=== PATIENT | female | born 1955 | race Caucasian/White ===

== ENCOUNTER 2016-08-18 11:36 | Day surgery (SDC) | payer BC ==
[2016-08-18] MEDS ORDERED: Morphine INJ* 4 MG/ML 1 ML SYRINGE ONE (12:27)
[2016-08-18] MEDS ORDERED: Ondansetron INJ* 2 MG/ML VIAL ONE (12:27)
[2016-08-18] MEDS ORDERED: Ondansetron INJ* 2 MG/ML VIAL IV ONE (13:00)
[2016-08-18] MEDS ORDERED: Morphine INJ* 4 MG/ML 1 ML SYRINGE IV ONE ×2 (13:00→13:06)
[2016-08-18] MEDS: NS 0.9% 1000 ML* 1,000 ML IV ONE ×2 (13:16→15:56)
--- NOTE | 2016-08-18 13:20 | RAD ---
CLINICAL HISTORY: Severe right lower quadrant and left lower quadrant pain COMPARISON: None relevant TECHNIQUE: Multiple contiguous axial CT scans were obtained of the abdomen and pelvis, without intravenous contrast enhancement. Coronal and sagittal multiplanar reformations are submitted for review. Oral contrast was not administered. FINDINGS: The study is limited by the lack of intravenous contrast. This limits evaluation of the solid organs and vasculature. LUNG BASES: The lung bases are clear. LIVER: The liver is diffusely low in attenuation compared to the spleen. There are no focal hepatic parenchymal masses. The liver measures up to 20 cm in long axis. BILE DUCTS: There is no intrahepatic or extrahepatic biliary dilatation. GALLBLADDER: The gallbladder is normal, without pericholecystic inflammatory change. PANCREAS: The pancreas is normal, without mass or ductal dilatation. SPLEEN: Normal in size and appearance. UPPER GI TRACT: Evaluation of the gastrointestinal tract is limited by incomplete gastric distention. The upper GI tract is unremarkable. SMALL BOWEL AND MESENTERY: The small bowel is normal in contour, course, and caliber. There is no obstruction or dilatation. COLON: There are multiple diverticula of the sigmoid colon and ascending colon. There is no pericolonic inflammatory change. ADRENALS: Normal bilaterally. KIDNEYS: There is a punctate left renal calyceal stones. There is a 0.8 x 0.3 cm calculus of the left UVJ. There is moderate left-sided hydronephrosis. BLADDER: As noted above, there is a left UVJ calculus. PELVIC ORGANS: The uterus is fibroid. AORTA: The aorta is normal. IVC: Unremarkable LYMPH NODES: There is no lymphadenopathy by size criteria. ABDOMINAL WALL: There is a small fat-containing umbilical hernia. BONES AND SOFT TISSUES: There are mild diffuse degenerative changes. OTHER: None IMPRESSION: 1. LEFT UVJ CALCULUS WITH MODERATE LEFT-SIDED HYDRONEPHROSIS. 2. DIVERTICULOSIS OF THE SIGMOID AND ASCENDING COLON. 3. HEPATOMEGALY WITH FATTY INFILTRATION OF THE LIVER
[2016-08-18 13:27] LABS: Hematocrit 41 % (35-47); Hemoglobin 13.2 g/dl (12.0-16.0); Mean Corpuscular HGB Conc 33 g/dl (31-36); Mean Corpuscular Hemoglobin 31 pg (27-31); Mean Corpuscular Volume 95 fL (80-97); Mean Platelet Volume 9 um3 (7.4-10.4); Red Blood Count 4.31 10^6/ul (4.0-5.4); Red Cell Distribution Width 15 % (10.5-15); White Blood Count 7.1 10^3/ul (3.5-10.8)
[2016-08-18 13:33] LABS: Urine Bacteria Absent (Absent); Urine Bilirubin Negative (Negative); Urine Glucose Negative (Negative); Urine Nitrite Negative (Negative)
[2016-08-18 13:42] LABS: Albumin 4.2 g/dL (3.2-5.2); BUN/Creatinine Ratio 11.5 (8-20); C Reactive Protein 4.22 mg/L (< 5.00); Calcium 10.3 mg/dL (8.6-10.3); EGFR African American 153.2 (>60); EGFR Non-African American 119.1 (>60); Globulin 3.6 g/dL (2-4); Potassium 3.6 mmol/L (3.5-5.0); Total Bilirubin 0.7 mg/dL (0.2-1.0); Total Protein 7.8 g/dL (6.4-8.9)
[2016-08-18] MEDS ORDERED: Ketorolac INJ* 30 MG/ML 1 ML VIAL IV ONE (14:30)
--- NOTE | 2016-08-18 15:31 | ED ---
Abdominal Pain/Female - HPI Summary HPI Summary: Patient presents with acute onset of abdominal pain this morning without known cause. She was getting dressed for work when she was suddenly doubled over in pain. She denies recent illness, fevers, diarrhea, constipation, urinary symptoms or LLAMAS. She has bilateral back pain and suprapubic pain and nausea. She has never had pain like this in the past and was well yesterday. She denies blood in her stool, no vaginal discharge and she is menopausal. - History of Current Complaint Chief Complaint: EDAbdPain Stated Complaint: ABD PAIN,CANT URINATE,VOMITING Time Seen by Provider: 08/18/16 12:05 Hx Obtained From: Patient, Family/Accounts Receivable Analyst ?: No Onset/Duration: Sudden Onset Timing: Constant Severity Initially: Severe Severity Currently: Severe Pain Intensity: 8 Location: Suprapubic, Flank Radiates: No Character: Sharp Aggravating Factor(s): Nothing Alleviating Factor(s): Nothing Associated Signs and Symptoms: Positive: Nausea, Vomiting. Negative: Chest Pain , Constipation, Blood in Stool, Urinary Symptoms, Decreased Appetite, Vaginal Bleeding Allergies/Adverse Reactions: Allergies Allergy/AdvReac Type Severity Reaction Status Date / Time No Known Allergies Allergy Verified 08/18/16 12:40 Home Medications: Home Medications ALPRAZolam TAB* [Xanax TAB*] 0.25 mg PO Q14D PRN 08/18/16 [History Confirmed 11/26] Ibandronate TAB(NF) [Boniva(NF)] 150 mg PO MONTHLY 08/18/16 [History Confirmed 08/18/16] Multiple Minerals W/ Vitamins [Bone Density Builder] 1 tab PO DAILY 08/18/16 [ History Confirmed 08/18/16] [place]-3 Fatty Acids (Nf) [Fish Oil (NF)] 1,000 mg PO DAILY 08/18/16 [History Confirmed 08/18/16] PMH/Surg Hx/FS Hx/Imm Hx Previously Healthy: Yes Endocrine/Hematology History: Reports: Hx Blood Disorders - hemachromatosis - Cancer History Cancer Type, Location and Year: breast CA - Surgical History Surgery Procedure, Year, and Place: rt lumpectomy. myomectomy Infectious Disease History: No Infectious Disease History: Denies: Traveled Outside the [place] in Last 30 Days - Family History Known Family History: Positive: None - Social History Occupation: Employed Full-time Lives: With Family Alcohol Use: Daily Substance Use Type: Reports: None Smoking Status (MU): Never Smoked Tobacco Review of Systems Negative: Fever, Chills Positive: Abdominal Pain, Vomiting, Nausea. Negative: Diarrhea Positive: flank pain All Other Systems Reviewed And Are Negative: Yes Physical Exam Triage Information Reviewed: Yes Vital Signs On Initial Exam: Initial Vitals Temp Pulse Resp BP Pulse Ox 97.1 F 64 20 146/60 100 08/18/16 11:50 08/18/16 11:50 08/18/16 11:50 08/18/16 11:50 08/18/16 11:50 Vital Signs Reviewed: Yes Appearance: Positive: Well-Appearing, Pain Distress, Thin Skin: Positive: Warm, Skin Color Reflects Adequate Perfusion, Dry, Soft Head/Face: Positive: Normal Head/Face Inspection Eyes: Positive: EOMI, MILE, Conjunctiva Clear ENT: Positive: Hearing grossly normal Respiratory/Lung Sounds: Positive: Clear to Auscultation, Breath Sounds Present Cardiovascular: Positive: RRR Abdomen Description: Positive: Soft, CVA Tenderness (R), CVA Tenderness (L), Guarding. Negative: Nontender - suprapubic pain, Distended Bowel Sounds: Positive: Present Musculoskeletal: Negative: Edema Left, Edema Right Neurological: Positive: Sensory/Motor Intact, Alert, Oriented to Person Place, Time, NV Bundle Intact Distally, Normal Gait Psychiatric: Positive: Affect/Mood Appropriate AVPU Assessment: Alert - Spring Coma Scale Coma Scale Total: 15 Diagnostics - Vital Signs Vital Signs Temp Pulse Resp BP Pulse Ox 08/18/16 15:00 83 125/53 100 08/18/16 14:30 88 137/72 99 08/18/16 14:03 95 138/97 89 08/18/16 14:00 96 99 08/18/16 13:30 90 141/72 97 08/18/16 13:24 91 85 08/18/16 13:22 139/54 08/18/16 13:16 20 08/18/16 12:25 20 08/18/16 12:01 98.1 F 70 20 137/64 100 08/18/16 11:53 98.9 F 65 20 146/60 97 08/18/16 11:50 97.1 F 64 20 146/60 100 - Laboratory Lab Results: Lab Results 08/18/16 08/18/16 08/18/16 Range/Units 12:15 13:15 13:15 WBC 7.1 (3.5-10.8) 10^3/ul RBC 4.31 (4.0-5.4) 10^6/ul Hgb 13.2 (12.0-16.0) g/dl Hct 41 (35-47) % MCV 95 (80-97) fL MCH 31 (27-31) pg MCHC 33 (31-36) g/dl RDW 15 (10.5-15) % Plt Count 154 (150-450) 10^3/ul MPV 9 (7.4-10.4) um3 Neut % (Auto) 86.1 H (38-83) % Lymph % (Auto) 8.7 L (25-47) % Mathews % (Auto) 4.8 (1-9) % Eos % (Auto) 0.1 (0-6) % Baso % (Auto) 0.3 (0-2) % Absolute Neuts (auto) 6.1 (1.5-7.7) 10^3/ul Absolute Lymphs (auto) 0.6 L (1.0-4.8) 10^3/ul Absolute Monos (auto) 0.3 (0-0.8) 10^3/ul Absolute Eos (auto) 0 (0-0.6) 10^3/ul Absolute Basos (auto) 0 (0-0.2) 10^3/ul Absolute Nucleated RBC 0 10^3/ul Nucleated RBC % 0 Sodium 133 (133-145) mmol/L Potassium 3.6 (3.5-5.0) mmol/L Chloride 99 L (101-111) mmol/L Carbon Dioxide 27 (22-32) mmol/L Anion Gap 7 (2-11) mmol/L BUN 6 (6-24) mg/dL Creatinine 0.52 (0.51-0.95) mg/dL Est GFR ( Amer) 153.2 (>60) Est GFR (Non-Af Amer) 119.1 (>60) BUN/Creatinine Ratio 11.5 (8-20) Glucose 128 H (70-100) mg/dL Lactic Acid (0.5-2.0) mmol/L Calcium 10.3 (8.6-10.3) mg/dL Total Bilirubin 0.70 (0.2-1.0) mg/dL AST 381 H (13-39) U/L ALT 128 H (7-52) U/L Alkaline Phosphatase 158 H (34-104) U/L C-Reactive Protein 4.22 (< 5.00) mg/L Total Protein 7.8 (6.4-8.9) g/dL Albumin 4.2 (3.2-5.2) g/dL Globulin 3.6 (2-4) g/dL Albumin/Globulin Ratio 1.2 (1-3) Amylase 44 (29-103) U/L Lipase 19 (11.0-82.0) U/L Urine Color Yellow Urine Appearance Cloudy Urine pH 7.0 (5-9) Ur Specific [place] 1.019 (1.010-1.030) Urine Protein 2+(100 mg/dl) H (Negative) Urine Ketones Trace H (Negative) Urine Blood 3+ H (Negative) Urine Nitrate Negative (Negative) Urine Bilirubin Negative (Negative) Urine Urobilinogen Negative (Negative) Ur Leukocyte Esterase Trace H (Negative) Urine WBC (Auto) 3+(>20/hpf) H (Absent) Urine RBC (Auto) 3+(>10/hpf) H (Absent) Ur Squamous Epith Cells Present H (Absent) Urine Bacteria Absent (Absent) Urine Glucose Negative (Negative) 08/18/16 Range/Units 13:15 WBC (3.5-10.8) 10^3/ul RBC (4.0-5.4) 10^6/ul Hgb (12.0-16.0) g/dl Hct (35-47) % MCV (80-97) fL MCH (27-31) pg MCHC (31-36) g/dl RDW (10.5-15) % Plt Count (150-450) 10^3/ul MPV (7.4-10.4) um3 Neut % (Auto) (38-83) % Lymph % (Auto) (25-47) % Mathews % (Auto) (1-9) % Eos % (Auto) (0-6) % Baso % (Auto) (0-2) % Absolute Neuts (auto) (1.5-7.7) 10^3/ul Absolute Lymphs (auto) (1.0-4.8) 10^3/ul Absolute Monos (auto) (0-0.8) 10^3/ul Absolute Eos (auto) (0-0.6) 10^3/ul Absolute Basos (auto) (0-0.2) 10^3/ul Absolute Nucleated RBC 10^3/ul Nucleated RBC % Sodium (133-145) mmol/L Potassium (3.5-5.0) mmol/L Chloride (101-111) mmol/L Carbon Dioxide (22-32) mmol/L Anion Gap (2-11) mmol/L BUN (6-24) mg/dL Creatinine (0.51-0.95) mg/dL Est GFR ( Amer) (>60) Est GFR (Non-Af Amer) (>60) BUN/Creatinine Ratio (8-20) Glucose (70-100) mg/dL Lactic Acid 2.2 H* (0.5-2.0) mmol/L Calcium (8.6-10.3) mg/dL Total Bilirubin (0.2-1.0) mg/dL AST (13-39) U/L ALT (7-52) U/L Alkaline Phosphatase (34-104) U/L C-Reactive Protein (< 5.00) mg/L Total Protein (6.4-8.9) g/dL Albumin (3.2-5.2) g/dL Globulin (2-4) g/dL Albumin/Globulin Ratio (1-3) Amylase (29-103) U/L Lipase (11.0-82.0) U/L Urine Color Urine Appearance Urine pH (5-9) Ur Specific [place] (1.010-1.030) Urine Protein (Negative) Urine Ketones (Negative) Urine Blood (Negative) Urine Nitrate (Negative) Urine Bilirubin (Negative) Urine Urobilinogen (Negative) Ur Leukocyte Esterase (Negative) Urine WBC (Auto) (Absent) Urine RBC (Auto) (Absent) Ur Squamous Epith Cells (Absent) Urine Bacteria (Absent) Urine Glucose (Negative) Result Diagrams: 08/18/16 13:15 08/18/16 13:15 Lab Statement: Any lab studies that have been ordered have been reviewed, and results considered in the medical decision making process. - CT No standard instances CT Interpretation: Positive (See Comments) CT Interpretation Completed By: Radiologist - 0.8 x 0.3 cm stone at the left UVJ ; hepatomegaly Re-Evaluation - Re-Evaluation First Eval Re-Evaluation Time: 12:50 Change: Unchanged - pain is still present Second Eval Re-Evaluation Time: 15:00 Change: Improved - pain has decreased Third Eval Re-Evaluation Time: 15:35 Change: Worse - pain is begin to return Abdominal Pain Fem Course/Dx - Diagnoses Differential Diagnosis: Positive: Abdominal Aortic Aneurysm, Appendicitis, Bowel Obstruction, Constipation, Diverticulitis, Hepatitis, Ovarian Cyst, Pancreatitis, Renal Colic, Urinary Tract Infection Provider Diagnoses: Kidney stone on left side - Provider Notifications Discussed Care Of Patient With: Dr. Fowler, ED attending; Dr. Wolff, urology Instructed by Provider To: Admit As Inpatient Discharge - Discharge Plan Condition: Stable Disposition: ADMITTED TO [facility]
[2016-08-18] MEDS ORDERED: HYDROmorphone* 1 MG/ML 1 ML SYR IV SLOW PU ONE (15:35)
[2016-08-18] MEDS ORDERED: NS 0.9% 1000 ML* 1,000 ML IV ONE (16:03)
[2016-08-18] MEDS ORDERED: Iohexol 180 (CONTRAST) 10 ML SDV IV ONE (16:19)
[2016-08-18 16:23] LABS: Urine Bacteria Absent (Absent); Urine Bilirubin Negative (Negative); Urine Glucose 1+(50 mg/dL) (Negative); Urine Nitrite Negative (Negative)
[2016-08-18] MEDS ORDERED: cefTRIAXone(*) 2 GM ADDV.VIAL IVPB ONE (16:56)
[2016-08-18] MEDS ORDERED: Lidocaine 2% PF * 5 ML VIAL ONE (17:22)
[2016-08-18] MEDS ORDERED: Propofol* 10 MG/ML 20 ML BTL IV PUSH ONE (17:22)
[2016-08-18] MEDS ORDERED: fentaNYL* 50 MCG/ML 2 ML VIAL (100 MCG VIAL) ONE (17:22)
[2016-08-18] MEDS ORDERED: PROCHLORPERAZINE INJ 5 MG/ML 2 ML VIAL IV PRN (17:43)
[2016-08-18] MEDS ORDERED: oxyCODONE/Acetamin 5/325 MG* TAB PO PRN (17:43)
[2016-08-18] MEDS ORDERED: Ondansetron INJ* 2 MG/ML VIAL IV PRN (17:43)
[2016-08-18] MEDS ORDERED: HYDROcodone/ACETAMIN 5-325 MG* 1 TAB PO PRN (17:43)
[2016-08-18] MEDS ORDERED: fentaNYL* 50 MCG/ML 2 ML VIAL (100 MCG VIAL) IV PRN (17:43)
--- NOTE | 2016-08-18 18:26 | RAD ---
INDICATION: Ureteral calculus, stent placement. COMPARISON: Correlation is made with a prior CT of the abdomen and pelvis from August 18, 2016. TECHNIQUE: 6 seconds of intermittent fluoroscopic guidance were provided and 4 spot films of the abdomen were centered on the left side. FINDINGS: There is partial opacification of the left renal collecting system. Subsequently there is placement of a double-J stent catheter on the left side which demonstrates normal course. IMPRESSION: INTRAOPERATIVE CONTROL FILMS. CPT II Codes: 6045F
[2016-08-18 18:49] VITALS: BP 132/61
--- NOTE | 2016-08-19 02:49 | OP ---
CC: Dr. Chyna Joel * DATE OF OPERATION: 08/18/16 - [facility] DATE OF : 51 SURGEON: Alban Wolff MD ANESTHESIOLOGIST: Johanne Staples MD ANESTHESIA: General. PRE-OP DIAGNOSES: 1. Distal Left ureteral calculus. 2. Left renal colic due to above. POST-OP DIAGNOSES: 1. Distal Left ureteral calculus. 2. Left renal colic due to above. OPERATIVE PROCEDURE: 1. Cystoscopy. 2. Left ureteroscopy and extraction of left ureteral calculus (6 mm). 3. Left retrograde pyelography and placement of left ureteral stent (6 Divehi). INDICATIONS: Ms. Laird is a 61-year-old white lady, who presented to the emergency room today with a 12-hour history of lower abdominal and left flank pain. Noncontrast CT of the abdomen and pelvis showed an 8-mm obstructing calculus in the distal left ureter. There was extravasation of urine around the proximal left ureter. Because of the above history and findings and the difficulty on controlling her pain and the size of the stone on the CT, the above procedure was advised and accepted. PATHOLOGY AT CYSTOSCOPY: The bladder mucosa looked normal. There were no suspicious bladder lesions seen. There was edema of the left trigone and left orifice. Upon left ureteroscopy, a 6 x 3 mm calculus was noted in the distal left ureter. The stone had the gross appearance of calcium oxalate stone. Left retrograde pyelography showed moderate hydronephrosis. DESCRIPTION OF PROCEDURE: After successful general anesthesia with the patient in the dorsal lithotomy position and after proper scrubbing and draping, cystoscopy was performed. The bladder was inspected and above findings were noted. A flexible-tip guidewire was then introduced into the left orifice and positioned in the area of the renal pelvis with fluoroscopy guidance. A 6.5 semirigid ureteroscope was then introduced inside the bladder. A flexible - tip basket was then introduced through the port of the ureteroscope and its flexible tip was introduced into the left orifice guiding the ureteroscope into the lumen of the ureter with minimal trauma. The calculus was identified. Because of its size and its location, it was felt that it could be basketed. The basket was deployed and the stone was pulled out intact with no trauma to the ureter. A second look of the ureter was then carried and there were no residual stones noted and the ureteral mucosa looked intact. Retrograde pyelography was then performed. A size 6-Divehi stent was then placed with the proximal end coiling in the renal pelvis and the distal end coiling inside the bladder. There was good drainage of contrast from the kidney and no extravasation. The patient tolerated the procedure well and left the operating room in good condition. The plan is to leave the stent for 5 to 6 days, it will be removed in the office under local anesthesia. [id number]/[facility] #: [id number] YUE
== END 2016-08-18 18:45 | disposition home or self-care (01) ==
LOC: ED 11:36 → OR 16:03
PROVIDERS: ATTEND Urology
DX: N13.2 Hydronephrosis with renal and ureteral calculous obstruction (principal); R39.0 Extravasation of urine; R10.32 Left lower quadrant pain; E83.119 Hemochromatosis, unspecified; Z85.3 Personal history of malignant neoplasm of breast; R31.9 Hematuria, unspecified; K76.0 Fatty (change of) liver, not elsewhere classified
CPT/HCPCS: 36415; 74176; 74420; 80053; 81003; 81015; 82150; 82365; 83605; 83690; 85025; 86140; 87086; 88300; 96374; 96375; 99284; C1876; J0696; J1170; J1885; J2270; J2405; J2704; J3010

== ENCOUNTER 2017-01-22 14:26 | Observation (INO) | payer BC ==
[2017-01-22] MEDS ORDERED: NS 0.9% 1000 ML* 1,000 ML IV ONE ×2 (14:46→15:36)
--- NOTE | 2017-01-22 15:04 | RAD ---
HISTORY: Neurological changes COMPARISONS: None TECHNIQUE: Multiple contiguous axial CT scans were obtained of the head without intravenous contrast. . FINDINGS: The study is limited by patient motion artifact. HEMORRHAGE/INFARCT: There is no hemorrhage or acute infarct. MASSES/SHIFT: There is no mass or shift. EXTRA-AXIAL SPACES: There is a small extra-axial mass of the right frontal convexity measuring 0.6 and is in depth without mass effect upon the adjacent cortex. SULCI AND VENTRICLES: The sulci and ventricles are normal in size and position for the patient's stated age. CEREBRUM: There are no focal parenchymal abnormalities. BRAINSTEM: There are no focal parenchymal abnormalities. CEREBELLUM: There are no focal parenchymal abnormalities. VESSELS: The vessels are grossly normal. PARANASAL SINUSES: The paranasal sinuses are clear. ORBITS: The orbits are unremarkable. BONES AND SOFT TISSUE: No bone or soft tissue abnormalities are noted. OTHER: None IMPRESSION: 1. NO ACUTE INTRACRANIAL PATHOLOGY. 2. SMALL RIGHT FRONTAL EXTRA AXIAL MASS, MOST CONSISTENT WITH MENINGIOMA, WITHOUT MASS EFFECT UPON THE ADJACENT BRAIN. 3. PRELIMINARY FINDINGS WERE DISCUSSED WITH DR. RODRIGUEZ AT APPROXIMATELY 3:00 PM ON JANUARY 22, 2017.
[2017-01-22] MEDS ORDERED: Aspirin TAB* 325 MG PO ONE (15:11)
[2017-01-22] MEDS ORDERED: Aspirin Low Dose CHEW TAB* 81 MG ONE (15:14)
[2017-01-22 15:18] LABS: Comments Flag Yes; Hematocrit 42 % (35-47); Hemoglobin 14.3 g/dl (12.0-16.0); Mean Corpuscular HGB Conc 34 g/dl (31-36); Mean Corpuscular Hemoglobin 31 pg (27-31); Mean Corpuscular Volume 93 fL (80-97); Mean Platelet Volume 8 um3 (7.4-10.4); Red Blood Count 4.55 10^6/ul (4.0-5.4); Red Cell Distribution Width 19 % (10.5-15)
[2017-01-22 15:19] LABS: Add Diff/Slide Review? Slide Review Added
[2017-01-22 15:22] LABS: Albumin 3.9 g/dL (3.2-5.2); BUN/Creatinine Ratio 8.9 (8-20); Calcium 10.2 mg/dL (8.6-10.3); EGFR Non-African American 140.7 (>60); Globulin 3.5 g/dL (2-4); HDL Cholesterol 93.8 mg/dL; Potassium 3.9 mmol/L (3.5-5.0); Total Bilirubin 0.6 mg/dL (0.2-1.0); Total Protein 7.4 g/dL (6.4-8.9)
[2017-01-22] MEDS ORDERED: Acetaminophen TAB* 325 MG PO PRN (15:22)
--- NOTE | 2017-01-22 15:37 | ED ---
Winston Perry Angela, scribed for Eder Dhaliwal MD on 01/22/17 at 1450 . Neurological HPI - HPI Summary HPI Summary: This pt is a 61 y/o female accompanied by her presenting to [facility] c/o disorientation, not responding at approximately 13:30 today. Per , pt was with her student when the student called the and reported the pt was not responding. states the pt was very disoriented, not speaking with her arm on the counter. Pt notes she does not remember any of this. put the pt on the couch for a period of 10 minutes. PMHx includes kidney stones, for which she has been drinking a lot of water. - History of Current Complaint Stated Complaint: STROKE LIKE SYMPTOMS Hx Obtained From: Patient Onset/Duration: Started hours ago, Resolved Current Severity: None Pain Intensity: 0 Pain Scale Used: 0-10 Numeric Character: Confusion, Other: - disorientation - Allergy/Home Medications Allergies/Adverse Reactions: Allergies Allergy/AdvReac Type Severity Reaction Status Date / Time No Known Allergies Allergy Verified 08/18/16 12:40 PMH/Surg Hx/FS Hx/Imm Hx Endocrine/Hematology History: Reports: Hx Blood Disorders - hemachromatosis - Cancer History Cancer Type, Location and Year: breast CA - Surgical History Surgery Procedure, Year, and Place: rt lumpectomy. myomectomy - Family History Known Family History: Positive: Other - cancer, osteomyelitis - Social History Alcohol Use: Daily Substance Use Type: Reports: None Smoking Status (MU): Never Smoked Tobacco Review of Systems Negative: Fever, Chills Eyes: Negative ENT: Negative Cardiovascular: Negative Neurological: Other - disorientation, confusion, memory loss of her unresponsiveness All Other Systems Reviewed And Are Negative: Yes Physical Exam Triage Information Reviewed: Yes Vital Signs Reviewed: Yes Appearance: Positive: Well-Appearing, Well-Nourished Skin: Positive: Warm, Skin Color Reflects Adequate Perfusion, Dry Head/Face: Positive: Normal Head/Face Inspection Eyes: Positive: Normal, EOMI ENT: Positive: Normal ENT inspection, Hearing grossly normal Respiratory/Lung Sounds: Positive: Clear to Auscultation, Breath Sounds Present Cardiovascular: Positive: Normal, RRR Musculoskeletal: Positive: Normal, Strength/ROM Intact Neurological: Positive: Normal, Sensory/Motor Intact, Alert, Oriented to Person Place, Time, Normal Gait Psychiatric: Positive: Normal Diagnostics - Laboratory Result Diagrams: 01/22/17 15:00 01/22/17 15:00 Lab Statement: Any lab studies that have been ordered have been reviewed, and results considered in the medical decision making process. - CT Brain CT CT Interpretation: Positive (See Comments) - IMPRESSION: 1. No acute intracranial pathology. 2. Small right frontal extra axial mass, most consistent with meningioma, without mass effect upon the adjacent brain. 3. Preliminary findings were discussed with Dr. Dhaliwal at approximately 3:00 PM on January 22, 2017. ED physician has reviewed this radiology report and agrees. CT Interpretation Completed By: Radiologist - EKG 1459 Cardiac Rate: NL EKG Rhythm: Sinus Rhythm - at 79 bpm EKG Interpretation: Normal axis. Normal intervals. No ischemic changes. NIH Scale - NIH Scale Level of Consciousness: Alert/Keenly Responsive Ask Patient the Month and His/Her Age: Both Correct Ask Pt to Open/Close Eyes and Java Scala Developer/Release Non-Paretic Hand: Both Correctly Best Gaze (Only Horizontal Eye Movement): Normal Visual Field Testing: No Visual Loss Facial Paresis-Pt to Smile & Close Eyes or Grimace Symmetry: Normal/Symmetrical Motor Function - Right Arm: No Drift-Holds 10 Seconds Motor Function - Left Arm: No Drift-Holds 10 Seconds Motor Function - Right Leg: No Drift-Holds 10 Seconds Motor Function - Left Leg: No Drift-Holds 10 Seconds Limb Ataxia-Must be out of Proportion to Weakness Present: Absent Sensory (Use Pinprick to Test Arms/Legs/Trunk/Face): Normal Best Language (Describe Picture, Name Items): No Aphasia Dysarthria (Read Several Words): Normal Extinction and Inattention: No Abnormality Total Score: 0 Course/Dx - Course Assessment/Plan: Pt is a 61 y/o female who presents with disorientation and not responding at approximately 13:30 today. Blood work, brain CT, and chest XR were obtained. Lab work shows AST is 145, ALT is 62, lactic acid is 2.8. Brain CT shows 1. No acute intracranial pathology. 2. Small right frontal extra axial mass, most consistent with meningioma, without mass effect upon the adjacent brain. 3. Preliminary findings were discussed with Dr. Dhaliwal at approximately 3: 00 PM on January 22, 2017. I discussed the case with Dr. Means, who admitted the pt. - Diagnoses Provider Diagnoses: TIA (transient ischemic attack), possible seizure During the Visit The Following Alert/Code Occurred: Code Cool - at 14:44 - Physician Notifications Discussed Care Of Patient With: Caroline Means Time Discussed With Above Provider: 15:20 Instructed by Provider To: Other - I discussed the case with Dr. Maens, who has accepted the pt for admission. Discharge - Discharge Plan Condition: Stable Disposition: ADMITTED TO [facility] Referrals: Chyna Joel MD [Primary Care Provider] - The documentation as recorded by the Winston alvarado Angela accurately reflects the service I personally performed and the decisions made by , Eder Dhaliwal MD.
[2017-01-22] MEDS ORDERED: Iohexol 350* (CONTRAST) 500 ML MDV IV ONE (15:43)
[2017-01-22 15:45] LABS: Urine Bilirubin Negative (Negative); Urine Glucose Negative (Negative); Urine Nitrite Negative (Negative)
--- NOTE | 2017-01-22 16:26 | RAD ---
Indication: Strokelike symptoms. History of breast cancer in 2009. Comparison: CT brain of the same date. Technique: [place]Sm[place]a 1.5 Rebecca [id number] with GEM suite. MRI brain without contrast. Report: Diffusion series is negative for acute or subacute ischemia. Susceptibility series is negative for stigmata of hemosiderin deposition to indicate previous hemorrhage. Mild prominence of the cerebral sulci. Unremarkable ventricles and basal cisterns. Multiple small T2/FLAIR hyperintense periventricular and subcortical white matter lesions with inbound sales representative dominant 1.0 x 0.4 cm lesion at the posterior LEFT frontal lobe at the level of the hernandez radiata. None demonstrate mass effect. 1.3 x 0.8 x 0.8 cm T1 isointense T2 mildly hyperintense extra-axial lesion adjacent to the frontal pole of the RIGHT frontal lobe superiorly with suggestion of a dural tail without mass effect is most consistent with a meningioma. Negative for intra or extra-axial fluid collections. Unremarkable orbital contents. Preserved major intracranial flow-voids. Pneumatized petrous apices with retained secretions on the RIGHT. No suspicious calvarial or skull base lesions evident. Unremarkable scalp. IMPRESSION: 1. No evidence for acute or subacute ischemic infarct. 2. Nonspecific white matter signal abnormalities without mass effect which may represent foci of chronic small vessel ischemic disease however the differential would include demyelinating disease as well as nonspecific white matter signal abnormalities which may be seen in setting of migraine headaches or prior inflammatory foci. 3. 1.3 x 0.8 x 0.8 cm RIGHT frontal extra-axial lesion most consistent with a meningioma. In absence of prior exams for comparison consider reassessment with pre and postcontrast MRI in 3 months time to assess for stability.
--- NOTE | 2017-01-22 16:37 | RAD ---
Indication: Code olmstead. TIA versus seizure. Comparison: August 18, 2016 CT abdomen Technique: Sitting AP chest 1612 hours Report: Rarefaction of the upper lung zone markings. Elevated lung volumes. No alveolar consolidation, focal pulmonary infiltrate, pleural effusion, pneumothorax. The heart, pulmonary vasculature, and mediastinal contours are unremarkable. IMPRESSION: Stigmata of potential chronic obstructive pulmonary disease and emphysema. Correlate with clinical assessment. No evidence for acute intrathoracic disease.
--- NOTE | 2017-01-22 17:21 | RAD ---
INDICATION: TIA versus seizure. COMPARISON: CT and MRI brain exams of the same date. TECHNIQUE: Multidetector CT images were obtained from the aortic arch to the vertex of the head with 80 mL Omnipaque 350 IV contrast. Arterial phase of enhancement. Multiplanar reformation including maximum intensity projection. 3-D arterial volume rendering. Stenosis estimations based on denominator of distal arterial diameter. NECK ANGIOGRAM REPORT: Calcified pulmonary granuloma at the apex of the RIGHT upper lobe. 0.9 cm well-circumscribed LEFT thyroid lobe nodule. No lymphadenopathy evident within the [id number]. Normal configuration of the aortic arch branch vessels. Negative for ostial stenosis. Mild calcific and noncalcific plaque at the RIGHT carotid bulb and proximal internal carotid artery with approximate 50% short segment RIGHT internal carotid artery ostial stenosis resulting. Negative for atherosclerotic disease at the LEFT carotid artery. Negative for carotid dissection. Patent LEFT dominant and RIGHT diminutive vertebral arteries with the RIGHT vertebral artery likely terminating with the origin of the RIGHT posterior inferior cerebellar artery, a normal variant. NECK ANGIOGRAM IMPRESSION: Approximate 50% short segment ostial stenosis at the RIGHT internal carotid artery. HEAD ANGIOGRAM REPORT: Unremarkable intracranial internal carotid arteries as well as the first and second segments of the middle cerebral arteries and first and second segments of the anterior cerebral arteries. Patent anterior communicating artery. Unremarkable basilar artery and cerebellar artery origins. Patent posterior cerebral arteries are supplied primarily by the posterior circulation with normal variant hypoplastic posterior communicating arteries. No intracranial aneurysm or vascular malformation evident. Noted small RIGHT frontal extra-axial mass demonstrates homogeneous enhancement. No additional extra or intra-axial lesions evident. HEAD ANGIOGRAM IMPRESSION: 1. No evidence for central intracranial large vessel arterial stenosis or occlusion. 2. In absence of prior exams to document stability with none available on the [facility] PACS reassessment of the probable incidental small meningioma at the RIGHT frontal cranial fossa with CT in 6 months time suggested. CPT II: CPT II Codes: 3100F
--- NOTE | 2017-01-22 20:25 | CONS ---
CC: [facility] * NEUROLOGY CONSULTATION: DATE OF CONSULT: 01/22/17 LOCATION: She is in the emergency room, bed 6. REFERRING PHYSICIAN: Dr. Dhaliwal. CHIEF COMPLAINT: Episode of diminished responsiveness. HISTORY OF PRESENT ILLNESS: Kayla Laird is a 61-year-old right-handed woman who was at her house today about 1:30 when a grad student or PhD candidate came to the house to work on some letters of reference or CV. She vaguely remembers greeting the student at the door. The rest of the next half an hour to an hour is sketchy in her mind. The next thing she recalls is that she is on the sofa speaking with her and feeling somewhat confused. Her states that he heard the student recruiter come in upstairs as he was downstairs working. He said that when he came home at about 1:15, his seemed less talkative than usual, but otherwise did not notice anything unusual. The grad student came down at about 1:20 to 1:30 and said that something was wrong. He went up to find his leaning over kitchen counter, looking unsteady and standing too close to the stove top flame. He said she tried to speak and she was not making any sense. He did not notice any weakness on one side or the other and her speech was not slurred. After a couple of minutes, he was able to help her in to the living room and get her down on to the sofa. After about 5 to 10 minutes altogether, she started to make more sense and asked questions and asked what was wrong. She said that she was afraid at one point. She was brought in to the emergency room and most of the rest of the episode she recalls. She has never had an event like this before. There is no history of cerebrovascular disease or seizure disorder. Currently, she does not have any problems with headaches, changes in vision, or numbness of her limbs or face. She has not been ill recently. She does not take any medications on a regular basis including does not take aspirin on a regular basis. PAST MEDICAL HISTORY: Notable for breast carcinoma treated with surgery and radiation in 2009. She was on tamoxifen for about 5 years and that was stopped about 2 years ago. She has a history of hemochromatosis and gets phlebotomies periodically based on her hematocrit. She had a kidney stone treated by Dr. Wolff this past August. She has had a couple of orthopedic problems including a fractured patella years ago treated by Dr. Dee. MEDICATIONS: She does not take any medications at home on a regular basis. She does take a couple of supplements including Boniva once a month and omega-3 fatty acids. She has alprazolam prescription, but it sounds like she takes it infrequently. ALLERGIES: She does not have any drug allergies. FAMILY HISTORY: Noncontributory. REVIEW OF SYSTEMS: Negative for headaches. She had a head injury with a laceration when she was 3 years old, but other than sutures, there was no medical treatment required. No other history of head trauma. No history of cardiac disease, diabetes, or hypertension. No fevers, chills, or infections recently. No recent trauma and no recent surgeries. She has hemochromatosis but no bleeding disorders. PHYSICAL EXAMINATION: She is well nourished and well hydrated. Blood pressure is running about 120/70 on the monitor and heart rate is in the 70s and in sinus. Respiratory rate is about 16. Neck is supple. Oral mucosa is moist and I do not see any oral trauma. Head is atraumatic. Neurologic Exam: Pupils react equally from 4 mm down to 2.5 symmetrically. Eye movements are full with some nystagmus and rightward gaze, which is nonsustained. Visual de jesus are full to confrontation bilaterally. Facial musculature is symmetric. Facial sensation to light touch is symmetric. Tongue protrudes in the midline and palate raises symmetrically and there is no dysarthria. Hearing is intact. Neck strength is normal. Motor exam reveals normal muscle tone and strength proximally and distally in upper and lower extremities. There is no drift of any limb and no spasticity. Cwthyn-je-phjg maneuver and hfgx-xj-jerq maneuver is normal bilaterally. There is no rest tremor. Sensory exam in the limbs is intact to light touch. There is no extinction to double simultaneous stimulation. Reflexes are intact and symmetric in upper and lower extremities symmetrically. Plantar responses are flexor bilaterally. She is alert and oriented and a good detailed historian other than for about 15 to 20 minutes around the time of this episode. Attention and concentration currently seems intact and language is fluent. LABORATORY DATA/DIAGNOSTIC STUDIES: Includes a CT of the brain, which I reviewed and does not show any evidence of prior or acute infarctions. There is a very small, less than 1 cm extraaxial lesion in the right frontal pole or just lateral to it. This was interpreted as a possible small meningioma. CBC from today is normal CBC, hemoglobin is 14.3 and platelet count 175,000. INR is 0.94 and PTT 33.5. Chemistry profile today is notable for a lactic acid of 2.8, rest of the chemistry profile is pretty unremarkable other than elevated AST at 145 and ALT at 62 and alkaline phosphatase at 145. Comparing to prior lab studies from August, liver enzymes are actually down and her lactic acid was mildly elevated back then too. IMPRESSION: My impression is that of a possible complex partial seizure, less likely a transient ischemic attack. Given the amnesia, transient ischemic attack seems less likely. She is within the 2-hour window for TPA, but her NIH score is 0. At this point , we will continue to evaluate her with next step being a CT angiogram of neck and brain. If that is negative and she remains asymptomatic, the next step will be an MRI of the brain and EEG. I have discussed the process with Kayla and her and we will continue to follow along. [id number]/[facility] #: [id number] YUE
[2017-01-22] MEDS: Heparin VIAL(*) 5000 UNITS/ML VIAL (FIVE THOUSAND) SUBCUT SCH (21:50)
--- NOTE | 2017-01-22 22:06 | HP ---
CC: Dr. Lorenzo; Dr. Joel; Dr. Guy * HISTORY AND PHYSICAL: DATE OF ADMISSION: 01/22/17 PRIMARY CARE PHYSICIAN: Dr. Joel. TECHNICAL STAFF ENGINEER: Dr. Lorenzo. CHIEF COMPLAINT: Altered mental status. HISTORY OF PRESENT ILLNESS: Kayla Laird is a 61-year-old female with recently diagnosed hemochromatosis for which she had been on phlebotomies prescribed by Dr. Lorenzo who had an episode of confusion and memory loss lasting approximately 15 minutes. 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 Her student noted that the patient was confused and kept on repeating herself. The student alerted the patient's who noted that the patient had fluent speech, but could not remember what was going on; appeared confused, anxious and upset. The episode lasted approximately 15 minutes and resolved. After that, the patient stated that she herself did not really recall much of the episode and she in fact had no recollection of working with her student on a CV, apart from that what she remembers last was greeting her student in the doorway. Her workup is grossly unremarkable. She is going to be placed on overnight observation with a diagnosis of TIA versus seizure. PAST MEDICAL HISTORY: 1. Hemochromatosis diagnosed a year ago. 2. History of right breast cancer, status post lumpectomy. 3. History of patellar fracture. 4. History of kidney stone, status post cystoscopy and stent placement and then removal in August 2016. 5. History of elevation of liver function tests due to hemochromatosis. MEDICATIONS: Include: 1. Boniva on a monthly basis. 2. [place]-3 fatty acids when the patient remembers to take it. ALLERGIES: No known drug allergies. FAMILY HISTORY: The patient's mother was diagnosed with autoimmune disorder in her 70s and secondary to Dafne cell carcinoma at the age of 80. Father is alive at the age of 86, has history of recently diagnosed CSF leak for which he needs to go and have surgery at the [facility]. SOCIAL HISTORY: The patient denies any tobacco or drug use. She drinks a couple of glasses of wine nightly. She is a [employer] teacher, , her is her surrogate. REVIEW OF SYSTEMS: Please see history of present illness. All of the remaining 12 systems were reviewed with the patient and were otherwise negative. PHYSICAL EXAMINATION GENERAL: The patient is a very pleasant 61-year-old female who is in no acute distress. Alert, awake, oriented x3. VITAL SIGNS: Blood pressure of 120/71, heart rate of 73 and regular, respiratory rate 14, oxygen saturation 99% on room air, temperature 98.2. HEENT: Head: Atraumatic, normocephalic. Eyes: Pupils are equal, reactive to light and accommodation. Oropharynx clear. Mucosa moist. NECK: Supple. No JVD. No bruits bilaterally. RESPIRATORY: Clear to auscultation bilaterally. CARDIOVASCULAR: Regular rate and rhythm, no murmur. ABDOMEN: Soft and nontender. Bowel sounds present in all 4 quadrants. EXTREMITIES: There is no edema. Pulses are +2 bilaterally. No clubbing, cyanosis. NEUROLOGIC: On neuro evaluation, speech is clear. Cranial nerves II through XII grossly intact. Motor strength is 5/5 bilaterally. PSYCHIATRIC: Oriented x2 with no evidence of anxiety or depression. LABORATORY DATA/DIAGNOSTIC STUDIES: Laboratory data shows white blood cell count 7.0, hemoglobin of 14.3, hematocrit of 42, and platelets of 175,000. Sodium 136, potassium 3.9, chloride 100, carbon dioxide 25, BUN 4, creatinine 0.45. Liver function tests showed AST of 145, ALT of 62, and alkaline phosphatase of 145. That is improved comparing from LFTs obtained in August 2016. The patient's lactic acid was 2.8, which was mildly elevated. The patient's LDL cholesterol was noted to be 77. Urinalysis was unremarkable. Head CT angiogram obtained today showed "no evidence for central intracranial large vessel arterial stenosis or occlusion. In absence of prior exams to document stability with none available on the [facility], reassessment of the probable incidental small meningioma at the right frontal cranial fossa with a CT in 6 months is suggested." Brain MRI, impression: "No evidence of acute or subacute ischemic infarct. No specific white matter signal abnormalities without mass effect, which may represent foci of chronic small vessel ischemic disease; however, the differential would include demyelinating disease as well as nonspecific white matter signal abnormalities, which may be seen in the setting of migraine headaches or prior inflammatory foci. 1.3 x 0.8 x 0.8 cm right frontal extraaxial lesion was consistent with a meningioma. In the absence of prior exam for comparison, consider reassessment with pre and post contrast MRI in 3 months to assess stability." Portable chest x-ray showed "stigmata of potential chronic obstructive pulmonary disease and emphysema . No evidence of acute intrathoracic disease." The patient's EKG showed normal sinus rhythm with a heart rate of 79 beats per minute, normal axis, no ST changes. ASSESSMENT AND PLAN: 1. A 61-year-old female with history of hemochromatosis who presents with transient alteration of mental status and memory loss. At this point, differential includes transient ischemic attack versus seizure disorder versus transient global amnesia. The patient was already evaluated by Dr. Guy, and most of the studies that Dr. Guy was recommending were already ordered. The patient is going to be observed on telemetry monitored bed. I will continue baby aspirin at this point. An EEG is going to be obtained in the morning. I will also obtain echocardiogram with bubble study. 2. For DVT prophylaxis, the patient is encouraged with ambulation and heparin subcutaneously is going to be provided. 3. Code status is full. The patient's surrogate is her . TIME SPENT: Approximately 55 minutes were spent on admission of this patient, more than half that time was spent [id number] with the patient during the interview and physical exam. [id number]/[facility] #: [id number] YUE
[2017-01-23 06:17] LABS: Hematocrit 39 % (35-47); Hemoglobin 13.1 g/dl (12.0-16.0); Mean Corpuscular HGB Conc 34 g/dl (31-36); Mean Corpuscular Hemoglobin 31 pg (27-31); Mean Corpuscular Volume 93 fL (80-97); Mean Platelet Volume 8 um3 (7.4-10.4); Red Cell Distribution Width 19 % (10.5-15); White Blood Count 4.4 10^3/ul (3.5-10.8)
[2017-01-23 06:30] LABS: BUN/Creatinine Ratio 6.9 (8-20); Potassium 3.6 mmol/L (3.5-5.0)
[2017-01-23] MEDS: Heparin VIAL(*) 5000 UNITS/ML VIAL (FIVE THOUSAND) SUBCUT SCH ×2 (07:54→13:27)
[2017-01-23] MEDS ORDERED: Aspirin Low Dose CHEW TAB* 81 MG PO SCH (09:00)
--- NOTE | 2017-01-23 11:06 | ECHO ---
Patient: DAGOBERTO BATES [facility] Rec#: [id number] : 1955 Date: 01/23/2017 Age: 61y Weight: kg / NaN lbs Sex: F Room#: [facility]02 Admit Date#: 01/22/2017 Type: Inpatient Referring: Caroline Means MD Reading: Erick Gardner MD Intelligent Systems Engineer: Dari Rendon RN RDCS CC: CONSTANTIN VÁSQUEZ Transthoracic Echocardiogram Indication: Possible TIA BP: 129/66 HR: 79 Rhythm: NSR Findings History: Right breast cancer, hemochromatosis Technical Comments: The study quality is fair. Completed at 0935. Left Ventricle: The left ventricular chamber size is normal. Septal wall hypertrophy is observed. Global left ventricular wall motion and contractility are within normal limits. There is normal left ventricular systolic function. The estimated ejection fraction is 55-60%. Abnormal left ventricular diastolic filling is observed, consistent with impaired relaxation. Left Atrium: The left atrial chamber size is normal. Right Ventricle: The right ventricular cavity size is normal. The right ventricular global systolic function is normal. Right Atrium: The right atrial cavity size is normal. The bubble study is negative. A patent foramen ovale is not demonstrated with color Doppler and agitated contrast. There is evidence of an atrial septal aneurysm. Aortic Valve: The aortic valve is trileaflet. The aortic valve leaflets are mildly thickened. There is no evidence of aortic regurgitation. There is no evidence of aortic stenosis. Mitral Valve: The mitral valve leaflets are mildly thickened. There is trace to mild mitral regurgitation. There is no evidence of mitral stenosis. Tricuspid Valve: The tricuspid valve leaflets are normal. There is trace tricuspid regurgitation. No pulmonary hypertension is noted. Pulmonic Valve: The pulmonic valve appears normal. There is trace to mild pulmonic regurgitation. There is no pulmonic stenosis. Pericardium: There is no significant pericardial effusion. A pericardial fat pad is visualized. Aorta: There is no dilatation of the ascending aorta. There is no dilatation of the aortic arch. There is no dilation of the aortic root. Pulmonary Artery: The main pulmonary artery appears normal. Venous: The inferior vena cava appears normal in size. There is a greater than 50% respiratory change in the inferior vena cava dimension. Contrast: Normal saline was used as contrast for the bubble study. Images 99 and 100. Conclusions Global left ventricular wall motion and contractility are within normal limits. There is normal left ventricular systolic function. The estimated ejection fraction is 55-60%. A patent foramen ovale is not demonstrated with color Doppler and agitated contrast. There is evidence of an atrial septal aneurysm. There is no evidence of aortic stenosis. There is trace to mild mitral regurgitation. There is trace tricuspid regurgitation. No pulmonary hypertension is noted. There is no significant pericardial effusion. Measurements Name Value Normal Range RVIDd (AP) 2D 2.6 cm (0.9 - 2.6) RVDdMajor (2D) 2.7 cm (2.2 - 4.4) RAd ISD 4CH 4.1 cm (3.4 - 4.9) RA (A4C)W 3.8 cm (2.9 - 4.6) IVSd (2D) 1.1 cm (0.6 - 1) LVPWd (2D) 0.9 cm (0.6 - 1) LVIDd (2D) 4.6 cm (3.6 - 5.4) LVIDs (2D) 3.1 cm - LV FS (2D) 31 % (25 - 45) Aortic Annulus 2.2 cm (1.4 - 2.6) Ao root diameter (2D) 2.9 cm (2.1 - 3.5) Ascending Ao 3.3 cm (2.1 - 3.4) Aortic arch 3 cm (1.8 - 3.4) LA dimension (AP) 2D 3.1 cm (2.3 - 3.8) LAd ISD 4CH 4.5 cm (2.9 - 5.3) LA ISD 4CH W 3.7 cm (2.5 - 4.5) Name Value Normal Range LA ESV SP 4CH (A/L) 37 ml - LA ESV SP 2CH (A/L) 28 ml - LA ESV BP (A/L) 34 ml - LA ESV BP (A/L) index 19 ml/m2 - LA ESV SP 4CH (MOD) 35 ml - LA ESV SP 2CH (MOD) 27 ml - Name Value Normal Range MV E-wave Vmax 0.59 m/sec - MV deceleration time 188 msec - MV A-wave Vmax 0.84 m/sec - MV E:A ratio 0.7 ratio - LV septal e' Vmax 0.07 m/sec - LV lateral e' Vmax 0.08 m/sec - LV E:e' septal ratio 10 ratio - LV E:e' lateral ratio 7.4 ratio - Name Value Normal Range AV Vmax 1.3 m/sec - AV VTI 31.6 cm - AV peak gradient 6.7 mmHg - AV mean gradient 4.5 mmHg - LVOT Vmax 0.99 m/sec - LVOT VTI 25.9 cm - LVOT peak gradient 4 mmHg - LVOT mean gradient 2.5 mmHg - SCOTTIE Vmax 0.66 m/sec - Name Value Normal Range TR Vmax 2.5 m/sec - TR peak gradient 25 mmHg - RAP 3 mmHg - RVSP 28 mmHg - IVC diameter 1.5 cm - Name Value Normal Range PV Vmax 0.76 m/sec -
[2017-01-23 13:14] VITALS: BP 131/70
--- NOTE | 2017-01-23 20:56 | CONS ---
NEUROLOGY FOLLOWUP CONSULTATION: DATE OF FOLLOWUP: 01/23/17 LOCATION: She is an inpatient, in room #445. HOSPITALIST: Dr. Means. CHIEF COMPLAINT: Episode of confusion and amnesia. INTERVAL HISTORY: Since yesterday, Ms. Laird feels well. She has not had any more episodes of diminished responsiveness, confusion, or loss of memory. MEDICATIONS: Currently consist of, 1. Aspirin 81 mg p.o. daily. 2. Subcutaneous heparin 5000 units q.8 hours. PHYSICAL EXAM: On limited exam, she remains afebrile, most recent temperature 99.7 by temporal scan. Blood pressure 131/70, heart rate 82 and regular. Speech is clear. Language is fluent. Memory is currently intact. DIAGNOSTIC STUDIES/LAB DATA: She has had a number of laboratory studies including an EEG earlier today, which was a normal awake EEG. She had a repeat lactate level which was 2.5, three and a half hours after the first one was 2.8. Her chemistries are otherwise unremarkable other than liver enzymes yesterday being somewhat elevated but improved from prior elevated liver enzymes. She had an MRI of the brain, which I reviewed, reveals a small probable meningioma in the right frontal area about 1 cm in maximum diameter. There were also a few punctate nonspecific white matter changes. CT angiogram of the neck and brain were normal. She had a transthoracic echocardiogram earlier today, which was likewise normal other than septal hypertrophy. ASSESSMENT/PLAN: Impression is that of an episode of weakness and subsequent amnesia suspicious for a complex partial seizure. However, her EEG was normal and her MRI did not show a clear lesion likely to cause seizures other than the small meningioma. I do not think there is enough evidence based on the one event to diagnosis as epileptic in origin and so I do not recommend anticonvulsants at this point in time. A transient ischemic attack is a possibility but given the amnesia less likely in my opinion. I think it is reasonable to discharge her home on aspirin 81 mg per day. I have advised that she not drive a motor vehicle until I get a second EEG as an outpatient and see her in followup in my office. We discussed different types of seizures with her present including complex partial seizures with blank stares and unresponsiveness, nocturnal seizures in which the patient may have awoken with fatigue, confusion, bitten tongue, or incontinence. I told them to call me if she has any suspicious episodes before I see her in followup in my office. [id number]/[facility] #: [id number] YUE
--- NOTE | 2017-01-24 04:33 | EEG ---
ELECTROENCEPHALOGRAM REPORT: DATE OF STUDY: 01/23/17 REFERRING PHYSICIAN: Dr. Means. LOCATION: She is an inpatient in room 445. CLINICAL HISTORY: Episode of weakness, confusion, and amnesia the day prior to this recording. MEDICATIONS: Include: 1. Aspirin. 2. Subcutaneous heparin. EEG DESCRIPTION: This 16-channel EEG is remarkable for background rhythms consisting of reasonably well-formed alpha rhythm in the posterior derivations at about 9-1/2 cycles per second, which is symmetric and suppressed by eye opening. Moderate voltage bifrontal beta rhythms are noted and are symmetric. There is movement artifact earlier in the tracing as the patient is talking. The patient does not appear to drowse or sleep during the recording. There are no focal, lateralized, or epileptiform abnormalities. INTERPRETATION: Normal awake EEG. [id number]/[facility] #: [id number] YUE
--- NOTE | 2017-01-24 05:34 | DS ---
CC: Dr. Guy; Dr. Joel * DISCHARGE SUMMARY: DATE OF ADMISSION: 01/22/17 DATE OF DISCHARGE: 01/23/17 PRIMARY CARE PROVIDER: Dr. Joel. DISCHARGE DIAGNOSIS: Transient alteration of mental state with ongoing seizure workup. SECONDARY DIAGNOSES: 1. History of recently diagnosed hemochromatosis. 2. History of anxiety. 3. History of right breast cancer, status post lumpectomy. MEDICATIONS: At discharge include: 1. Boniva on a monthly basis. 2. Xanax on a p.r.n. basis. 3. Fyffe-3 fatty acids daily one capsule. 4. Aspirin 81 mg daily. CONSULTATION DURING THE HOSPITAL STAY: Included Dr. Guy from Neurology. LABORATORY DATA AND STUDIES PERFORMED DURING HOSPITAL STAY: Included, on , sodium of 137, potassium 3.6, chloride 104, carbon dioxide 25, BUN 4, creatinine 0.48. Liver function tests showed AST of 145, ALT of 62, and alkaline phosphatase of 145. The patient's cholesterol profile showed triglycerides of 66, cholesterol total of 174, LDL 79, and HDL of 82. The patient's lactic acid was 2.8 on presentation and 2.5 after initial IV fluid treatment. CBC on 01/23/17 showed white blood cell count of 4.4, hemoglobin of 13.1, hematocrit of 39, and platelets of 156. Transthoracic echocardiogram on 01/23/17 showed EF of 55% or 60% with global left ventricular wall motion and contractility within normal limits. There was no patent foramen ovale demonstrated by agitated contrast. There was trace-to- mild mitral regurgitation and trace tricuspid regurgitation. Head CTA obtained on 01/22/17, impression: "No evidence of central intracranial large vessel arterial stenosis or occlusion." Head MRI obtained on 01/22/17, impression: "No evidence of acute or subacute ischemic infarct. Nonspecific white matter signal abnormalities without mass effect, which may represent foci of chronic small vessel ischemic disease; however, the differential would include demyelinating disease as well as nonspecific white matter signal abnormalities, which may be seen in the setting of migraine headaches or prior inflammatory foci. 1.3 x 0.8 x 0.8 cm right frontal extraaxial lesion most consistent with meningioma. In absence of prior exams for comparison, consider reassessment of pre and post contrast MRI in 3 months' time to assess for stability." HOSPITALIZATION COURSE: Kayla aLird is a 61-year-old female, who has history of recently diagnosed hemochromatosis and had been using intermittent therapeutic phlebotomies, who presents to the hospital after transient altered mental status. This occurred for duration of approximately 15 minutes. The patient appeared confused, slightly anxious with clear speech, unable to remember anything. For further details of the patient's presentation, please see history and physical dictated by myself on admission. Shortly, the patient' s symptoms resolved by the time she was seen in the emergency department. She was seen and consulted by Dr. Guy, who recommended an extensive workup that included CT angiogram, MRI, and transthoracic echocardiogram. All of the above were mentioned. The patient was noted to have an incidental small frontal meningioma that is 1.3 x 0.8 x 0.8 cm that likely did not contribute to the patient's symptoms. The patient was observed on telemetry monitored bed with no evidence of arrhythmias. The patient's transthoracic echocardiogram was also not abnormal. Her EEG as per the verbal report that I received from Dr. Guy was also unremarkable. At this point, the patient is going to be discharged home with recommendation to follow up with Dr. Guy in approximately 2 weeks with another EEG. Dr. Guy recommended for the patient not to drive until she is cleared by Neurology. Physical exam at discharge is unchanged from admission. Please note that the patient has mild elevation of LFTs and lactic acid. It appears to be nonspecific. She did not appear to be dehydrated when she came in and her lactic acid had gotten better after mild intravenous hydration. Of note, she already had elevated lactic acid of 2.2 during her hospital stay in August of 2016. Her liver function tests elevation was most likely due to hemochromatosis that has improved from prior. For her incidental meningioma, the radiologist recommended a followup MRI or CT scan in approximately 3 months to document stability. The patient is going to be discharged with recommendation to follow up with her primary care provider in approximately 1 to 2 weeks. As above mentioned, Dr. Guy would like to follow up with the patient in approximately 2 weeks in his office, going to call the patient with the appointment. The patient is not to drive until cleared by Neurology as above mentioned. Physical exam at time of discharge is unchanged from admission. [id number]/[facility] #: [id number] [facility]
== END 2017-01-23 15:50 | disposition home or self-care (01) ==
LOC: ED 14:26 → MEDTELE 15:22
PROVIDERS: ADMIT Internal Medicine; ATTEND Internal Medicine
DX: R41.82 Altered mental status, unspecified (principal); E83.119 Hemochromatosis, unspecified; F41.9 Anxiety disorder, unspecified; Z85.3 Personal history of malignant neoplasm of breast; Z79.899 Other long term (current) drug therapy; Z79.82 Long term (current) use of aspirin
CPT/HCPCS: 36415; 70450; 70496; 70498; 70551; 71010; 80048; 80053; 80061; 81003; 83605; 84484; 85025; 85610; 85730; 93005; 93306; 95816; 96360; 99284; A9270-GY; G0378; J1644; Q9967

== ENCOUNTER 2018-08-28 08:02 | Observation (INO) | payer BC ==
[~2018-08-28 08:02] MED LIST: Buffered Lidocaine 1% SYRIN* 1 ML/SYRINGE INTRADERM ONE; Dexamethasone IV* 4 MG/ML 1 ML (4 MG) IV SLOW PU ONE; Famotidine TAB* 20 MG PO ONE; Lactated Ringers 1000 ML Bag* 1,000 ML IV SCH
[2018-08-28] MEDS ORDERED: ceFAZolin 2 GM in NS PREMIX(*) 2 GM/100 ML BAG IVPB ONE (08:22)
[2018-08-28] MEDS ORDERED: Famotidine TAB* 20 MG ONE (08:22)
[2018-08-28] MEDS ORDERED: Dexamethasone IV* 4 MG/ML 1 ML (4 MG) ONE (08:22)
[2018-08-28] MEDS ORDERED: Buffered Lidocaine 1% SYRIN* 1 ML/SYRINGE INTRADERM ONE (08:36)
[2018-08-28] MEDS ORDERED: fentaNYL* 50 MCG/ML 2 ML VIAL (100 MCG VIAL) ONE ×2 (09:23→16:33)
[2018-08-28] MEDS ORDERED: Rocuronium* 10 MG/ML VIAL ONE (09:24)
[2018-08-28] MEDS ORDERED: Midazolam* 1 MG/ML 2 ML VIAL (2 MG) ONE (09:24)
[2018-08-28] MEDS ORDERED: Propofol* 10 MG/ML 20 ML BTL ONE (09:25)
[2018-08-28] MEDS ORDERED: Lidocaine 2% PF * 5 ML VIAL ONE (09:25)
[2018-08-28] MEDS ORDERED: Bupivacaine 0.5% W/EPI SDV* 30 ML VIAL ONE (11:29)
[2018-08-28] MEDS ORDERED: HYDROmorphone INJ1* 1 MG/ML SYRINGE ONE ×2 (12:00→17:36)
[2018-08-28] MEDS ORDERED: Naloxone* 0.4 MG/ML 1 ML VIAL IV PRN (14:29)
[2018-08-28] MEDS ORDERED: Acetaminophen IV 1GM/100ML * 1,000 MG/100 ML VIAL IVPB ONE (14:29)
[2018-08-28] MEDS ORDERED: fentaNYL* 50 MCG/ML 2 ML VIAL (100 MCG VIAL) IV PRN (14:29)
[2018-08-28] MEDS ORDERED: oxyCODONE TAB* 5 MG TAB PO PRN ×2 (14:29→20:53)
[2018-08-28] MEDS ORDERED: DiMENhydriNATE IV* 50 MG/ML VIAL IV PUSH PRN (14:29)
[2018-08-28] MEDS ORDERED: Ketorolac INJ* 30 MG/ML 1 ML VIAL IV PRN (14:29)
[2018-08-28] MEDS ORDERED: ceFAZolin VIAL(*) VIAL ONE (16:09)
[2018-08-28] MEDS ORDERED: Ondansetron INJ* 2 MG/ML VIAL ONE (16:26)
[2018-08-28] MEDS ORDERED: Acetaminophen IV 1GM/100ML * 100 ML ONE (17:05)
[2018-08-28] MEDS ORDERED: Ketorolac INJ* 30 MG/ML 1 ML VIAL ONE (17:05)
[2018-08-28] MEDS ORDERED: DiMENhydriNATE IV* 50 MG/ML VIAL ONE (17:18)
[2018-08-28] MEDS: HYDROmorphone INJ1* 1 MG/ML SYRINGE IV PRN ×2 (17:36→17:59)
[2018-08-28] MEDS ORDERED: oxyCODONE TAB* 5 MG TAB ONE (18:03)
[2018-08-28] MEDS ORDERED: diPHENhydraMINE IV* 50 MG/ML 1 ml VIAL (BENADRYL) IV PRN (18:36)
[2018-08-28] MEDS ORDERED: Ondansetron INJ* 2 MG/ML VIAL IV PRN (18:36)
[2018-08-28] MEDS ORDERED: oxyCODONE/Acetamin 5/325 MG* TAB PO PRN ×2 (18:36)
[2018-08-28] MEDS ORDERED: Acetaminophen TAB* 325 MG PO PRN (18:36)
[2018-08-28] MEDS: NS 0.9% 1000 ML** 1,000 ML IV SCH (20:27)
[2018-08-28] MEDS ORDERED: Ibuprofen TAB* 600 MG PO PRN (21:45)
[2018-08-28] MEDS: Morphine INJ* 2 MG/ML 1 ML SYRINGE (TWO MG - NEW SYRINGE VERSION) IV PRN (22:07)
[2018-08-28] MEDS: oxyCODONE TAB* 5 MG TAB PO PRN (22:07)
[2018-08-29] MEDS: ceFAZolin 1 GM ADVAN(*) 1 GM in NS 0.9% 50 ML* 50 ML IVPB SCH ×3 (00:03→15:52)
[2018-08-29] MEDS: Morphine INJ* 2 MG/ML 1 ML SYRINGE (TWO MG - NEW SYRINGE VERSION) IV PRN ×12 (00:03→23:50)
[2018-08-29] MEDS: oxyCODONE TAB* 5 MG TAB PO PRN ×5 (02:02→20:05)
--- NOTE | 2018-08-29 09:23 | PN ---
Progress Note - Progress Note Date of Service: 08/29/18 SOAP: Subjective: Numbness and tingling resolved. Pain c/w Oxycodone and Morphine. Objective: BUE: - splints in place - swelling fingers, R>L - NVID Selected Entries 08/29/18 07:32 Temperature 98.1 F Pulse Rate 73 Respiratory 10 Rate Blood Pressure 119/58 (mmHg) O2 Sat by Pulse 100 Oximetry Assessment: POD 1 ORIF bilateral distal radius fractures L knee non-displaced L patella fracture Plan: - Pain control - Occupational therapy - Dispo planning - Ancef up to 3 doses every 8 hours postop - MRI R knee to evaluate for non-displaced fracture, meniscus tear, articular cartilage injury - Lovenox x 2 weeks - Follow up with me next week in clinic (Sunday or Sunday)
[2018-08-29] MEDS: NS 0.9% 1000 ML** 1,000 ML IV SCH ×2 (11:10→19:37)
[2018-08-29] MEDS: Enoxaparin(*) 40 MG/0.4 ML SYR SUBCUT SCH (12:05)
[2018-08-29] MEDS: Morphine TAB Extended Release (*) 30 MG TAB.ER PO SCH (14:06)
--- NOTE | 2018-08-29 16:35 | PN ---
Progress Note - Progress Note Date of Service: 08/29/18 Note: Patient having increased swelling and pain in both wrists She feels that the splints/dressing bilaterally are too tight. She denies paresthesias in the right and left hands. Quincy and webril opened up on right wrist, splint not removed, incisions not exposed. new QUINCY applied, patient felt immediate improvement. QUINCY and some of the Webril loosened on the left wrist, incisions not exposed, patient also felt improvement, new quincy wrapped.
[2018-08-29] MEDS: Ketorolac INJ* 30 MG/ML 1 ML VIAL IV PUSH PRN (16:39)
[2018-08-30] MEDS: oxyCODONE TAB* 5 MG TAB PO PRN ×5 (00:15→16:01)
[2018-08-30] MEDS: Morphine INJ* 2 MG/ML 1 ML SYRINGE (TWO MG - NEW SYRINGE VERSION) IV PRN ×2 (01:53→05:58)
[2018-08-30] MEDS: Ketorolac INJ* 30 MG/ML 1 ML VIAL IV PUSH PRN ×2 (03:18→09:32)
--- NOTE | 2018-08-30 03:48 | OP ---
DATE OF OPERATION: 08/28/18 - ROOM #335 DATE OF : 51 SURGEON: Dr. Yair Lopez. PERMASTONE APPLICATOR: EUGENE Mcmahan. A physician stores assistant was present for the length of the procedure for assistance with the patient positioning, retraction, instrumentation and closure. ANESTHESIOLOGIST: Dr. Neno Max. ANESTHESIA: General anesthesia, 10 cc of Marcaine with epinephrine, local anesthesia placed both about the right wrist incision and left wrist incisions. PRE-OP DIAGNOSES: 1. Right wrist displaced distal radius fracture, displaced distal ulna fracture. 2. Left wrist displaced distal radius fracture, ulnar styloid process fracture. POST-OP DIAGNOSES: 1. Right wrist displaced distal radius fracture, displaced distal ulna fracture. 2. Left wrist displaced distal radius fracture, ulnar styloid process fracture. OPERATIVE PROCEDURES: 1. Open reduction internal fixation, right distal radius fracture with volar locking plate and cancellous allograft bone chips. 2. Closed treatment of right distal ulnar neck fracture, displaced. 3. Open reduction internal fixation, left distal radius fracture with bone grafting placed through a dorsal approach and a dorsal spanning plate. 4. Modifier 22, for an unusual or complex procedure, for a variety of reasons. The patient required surgery on both wrists. 2 separate preps and drapes and timeouts were performed. The patient's right wrist injury was highly unstable with a significant zone of comminution, and was volarly unstable. That added to the complexity of that part of the procedure. As well, the treatment of the contralateral left wrist required separate exposure dorsal approach for bone grafting of the distal radius as well as exposure of the mid radial shaft and second metacarpal for dorsal spanning plate placement. As well the significant osteopenic comminuted nature of the patient's bone made it an unusual case. ANTIBIOTICS: Ancef 2 g IV given at the start of the procedure or just prior to the start of the procedure and then approximately 4 hours later. IV FLUIDS: See Anesthesia note. SKIN TO SKIN TIME: Approximately 103 minutes on the right side and 105 minutes on the left side. TOURNIQUET TIME: Upper arm tourniquets were utilized set to 250 mmHg. I used a tourniquet on the right upper extremity for 103 minutes followed by on the left upper extremity for 105 minutes. RADIATION EXPOSURE: Smaller mini C-arm utilized. COMPLICATIONS: None. IMPLANTS: In the right wrist, I placed a Synthes 4-hole normal with volar polyaxial locking plates and filled it with locking 2.4 mm fully threaded screws as well as 1 nonlocking 2.7 mm screw in an oval hole. In the right wrist , I utilized 5 cc of cancellous allograft bone chips. In the left wrist, I used a Synthes dorsal spanning wrist plate. I placed 2.4 mm locking screws, 8 of them through that plate. I used 10 cc of cancellous allograft bone chips, placed in the distal radius from dorsal. COMPLICATIONS: None. ESTIMATED BLOOD LOSS: Minimal. INDICATIONS FOR PROCEDURE: The patient is a 63-year-old woman, professor at [employer], right-hand dominant, who sustained a fall 13 days preoperatively while in [place], helping her father move into an assisted living facility. On the date of the injury, 08/15/18, the patient tripped and fell forward, landing on her knees, then hands and wrists, and then her face. The floor had carpet of some sort on it, but below that was marble. The patient had significant pain. She was taken by EMS to the emergency department and was found to have fractures in bilateral wrists as well as of her left patella. Bilateral upper extremity splints were placed for her wrist. The patient was placed in a knee immobilizer, left. The patient states that the fracture to the left patella was not detected by x-ray but was detected by CT imaging. We just have access to this report that the patient showed to us from her or her 's phone. The patient continued to have a significant right knee pain, but x-rays were negative and this was not worked up further. The patient was seen by her primary care physician, Dr. Joel, who is also concerned about a possible DVT in her left calf. I was happy to see the patient in clinic on 08/22/18. I performed a history and physical at that clinic session. I noted that the right wrist had a very unstable injury, a significantly comminuted fracture, that appeared mostly extraarticular, with significant volar displacement of both the distal radius and the distal ulna. The ulna fracture was in the ulnar neck, a clear sign of osteopenia. The left wrist x-rays that I reviewed in clinic at first were not as worrisome. However, the dorsal rim of the distal radius was not well visible, indicating a significant degree of impaction or displacement. There also appeared to be some displacement about the radial styloid as well as an ulnar styloid fracture. I thought advanced imaging would be important and told the patient that she would likely need surgery on this wrist as well. I ordered a CT scan of the left wrist within the next several days to evaluate that. I continued the patient in her left knee immobilizer and limited her weightbearing somewhat. I sent her for a duplex ultrasound that ruled out a DVT of left lower extremity. After CT scan results were obtained, on 08/27/18, I followed up by telephone with the patient's . CT scan made it clear given the amount of intraarticular incongruity and dorsal tilt, that surgery was recommended for that left wrist. Therefore, the patient was scheduled for the following day for bilateral wrist surgery by me as opposed to just right wrist surgery, which is what was initially scheduled. I talked to the patient's about how, even though the right wrist was much more painful, at this point the left wrist was more concerning injury to me given the more significant intra-articular nature and the intra-articular displacement presence in that injury versus in the contralateral right wrist injury. I decided to relax my weightbearing restrictions on that left lower extremity and we discussed advanced imaging, MRI of the right knee given her continued right knee pain despite the relatively unremarkable exam on that first date in clinic. I spoke to the patient's about my concerns about the left wrist, namely , future arthritis, discomfort, stiffness, loss of function. As well, we discussed the need for future removal of hardware. DESCRIPTION OF PROCEDURE: In preoperative holding, the patient signed a written consent. I discussed risks and potential complications, including but not limited to bleeding, infection, nerve or blood vessel injury, need for reoperation, wrist pain, stiffness, loss of function, osteoarthritis, tendon injury, painful hardware. When I scheduled the surgery and also as I booked it, scheduled the patient for an open reduction internal fixation right distal radius fracture with volar locking plate, a possible open reduction internal fixation of the right distal ulna with ulnar hook locking plate, and then an external fixation versus open reduction internal fixation of the left distal radius. I spoke about the dorsal or volar approach and I consented the patient for cancellous allograft bone chip utilization. The patient was scheduled to go home postoperatively, but we entertained the possibility that this might not be feasible given the injuries to all 4 limbs, some limited weightbearing and inability for the patient to care for herself. I spoke about how the patient might require future removal of hardware, definitely if I placed a dorsal spanning locking plate and possibly with ulnar or distal radius standard plates. Operative extremities were marked in preoperative holding. The patient was taken back to the operating room and placed supine on the operating room table. It should be noted we performed two separate prep and drapes, and two separate time-outs for this operation. The patient was sedated and intubated. I pulled the mini C-arm over to the patient's left wrist. I performed a mini time- out. I performed a reduction maneuver with some wrist flexion and traction, trying to get as much information as I could about the left wrist, that I would use in conjunction with preoperative CT to determine my intraoperative plan for that more complicated injury. We spun the bed around making the right upper extremity appropriate for surgery. Hand table was placed. Tourniquet was placed about the right upper arm. The right upper extremity was prepped and draped. Surgical time-out was performed. Esmarch was applied and the tourniquet was elevated to 250 mmHg. I made a standard 7-cm incision, volar approach to the distal radius. Incised skin. Dissected down to FCR sheath. Incised that. Retracted FCR. Incised FCR subsheath. Retracted FPL, mobilized at ulna. Identified pronator quadratus. Fairly significant deformity about the distal forearm present. I incised the pronator quadratus off the radial most aspect of the distal radius. I did this with a deep knife and then with Bovie electrocautery. Fracture site identified. Fibrous tissue in it debrided with curette and rongeur. Retractors had been placed. A significant deformity about the fracture site of significant volar translation of the distal fragment and shortening. For some period of time, I utilized traction of the end of the hand table, 10 pounds. Ultimately, I found that reduction with my own hands was most effective. I obtained some provisional fixation with K wires placed from radial proximal to ulnar distal across the fracture site. I had a good visualization of distal radius fracture lines. I chose plate width, standard. I placed plate to bone distally. Placed 2 locking screws through the distal row of the plate. Obtained mini C-arm images that showed adequate location of the plate. I then performed a reduction maneuver again manual after having removed the pins that had been placed. I was able to obtain excellent anatomic looking reduction visibly, utilizing the plate to manipulate the distal fragment and to hold that reduction. It was obvious when appropriate reduction was made that there was a big void of bone in the fracture site, there was significant comminution, segmentally, had caused much of bone to be absent, but I was able to fit this together like a jigsaw and it clearly lined up ulnarly and radially and I was very happy with that. I placed a non-locking screw through the oval hole proximally. Mini C-arm images showed excellent reduction in the AP and lateral planes. The distal most aspect of bone might have been volarly translated just a tiny bit, but it was clearly adequate radiographically and anatomically, visibly look like an excellent reduction in the wound. I filled in the screw holes, distally and then proximally with 2.4-mm locking screws. I exchanged out the non-locking screw for a larger one at the end. The initial locking screws that I placed were repositioned, with shorter screws in a slightly different trajectory. 5 cc of cancellous bone graft was next placed through a large hole in the plate , into the bony defect. I compacted this nicely. This was done with bone tamp. I next performed some dynamic imaging or rather just x-rays of the wrist in a variety of forearm positions, in neutral, fully pronated and supinated. I found that the distal ulna was well reduced in all forearm positions. There was minimal displacement translationally, less than 10% with a 50% as normally the threshold for action. Angulation was clearly less than 10 degrees. In many images, it looked anatomically reduced. I also stressed the DRUJ with a volar and dorsal shuck and there is no instability of the DRUJ. For these reasons, there was no clear indication to perform open reduction internal fixation of distal ulna. In theory, placing this plate might add some additional strength to the wrist that would aid in weightbearing. However, it is not a particularly negrete plate and can lead to plate irritation and necessitate removal, so I did not think it was worthwhile even in this case to place that distal ulna hook plate. Irrigation. Closure with just 1 stitch of pronator quadratus to FCR subsheath, which had been marked earlier in the case. Closure of the subcutaneous tissues with buried simple stitches using Vicryl 3.0 suture. Running stitch of the skin with nylon 4.0 suture. Marcaine 0.5% with epinephrine 10 cc placed in the subcutaneous tissues about the skin incision. Xeroform, 4 x 4s, sterile Webril. Then non-sterile Webril. A splint was placed. There was a volar slab and then a ulnar slab with plaster overwrapped with an Ranjith bandage. Drapes were taken down. Hand table was removed and arm board, usual was used. Re-spun the operative table at 180 degrees. Hand table placed. Tourniquet placed on the left upper extremity. Left upper extremity was prepped and draped. Surgical time-out performed. Esmarch applied and tourniquet elevated to 250 mmHg. Took some mini C-arm images to assess distal radius. Traction improved slightly the reduction. Preoperative CT scans had shown significant impaction at the dorsal aspect of the lunate fossa. It showed significant comminution of intra-articular aspects of the distal radius. In particular, this was true of the scaphoid fossa bone. Especially, at this point with mini C-arm imaging, I was very aware of a fragment that almost looked like a broken osteophyte of the radial styloid, but was clearly a some sort of certain tiny eggshell fragment of the rim of the radial styloid. Given the improvement of reduction with traction, I thought a dorsal spanning plate was appropriate. I chose this rather than external fixator because of the improved cosmesis and improved function given that the patient might have difficulty using either wrist. I figured that the dorsal spanning plate would improve reduction and improve stability and possible worsening of reduction over time if this were to be treated nonoperatively. I decided to use some bone graft dorsally and directly improve the reduction of that impacted dorsal aspect of the lunate fossa appreciated so well on the sagittal cuts of CT scan preoperatively. I made a standard dorsal approach to the wrist skin incision. Longitudinal just ulnar to Grzegorz's tubercle. I dissected down to the extensor retinaculum. Incised that in-line with the EPL tendon. Retracted EPL radially. Continued to dissect with knife down to bone. I dissected subperiosteally both in ulnar and radial direction to open that 2 to 4 interval. There was a longitudinal split in the bone visible at about Grzegorz's tubercle. Otherwise, the dorsal cortex was intact. I rongeured a small amount of cortex off adjacent to this vertical or longitudinal fracture line. I then used a Venice elevator and a bone tamp through this hole to tamp up the dorsal aspect of the distal radius, improving the reduction on mini C- arm imaging. Happy with this improvement in reduction, I next filled in the bony defect and got support for this reduction using cancellous bone graft. I used a total of 10 cc. A small lc of the dorsal bone proximally was unstable and I stabilized that provisionally with a threaded K-wire. After the 10 cc of bone graft had been placed, I briefly considered going after that eggshell fragment about the radial styloid. I was able to visualize part of it and palpate it. I could do that in the wound. I tried percutaneously pinning it, but in doing so noted how small this fragment was. I considered extending my dissection or making a separate first compartment approach, but the added soft tissue stripping and given the osteoporotic comminuted nature of the bone, I did not think that this would be helpful and might cause more harm than good. I next made 2 longitudinal incisions, one overlying the shaft of the second metacarpal and one about the mid to distal aspect of the radial shaft. I chose the second rather than the third metacarpal because of how it aligned. In each location, I dissected down to bone. I dissected radial to the index finger extensor tendons and I dissected down to bone between the ECRL and the ECRB more proximally. I placed a nonlocking 2.4 mm screw through the plate distally and then I reduced the distal radius with traction and then placed a locking screw in the radial shaft. With some manipulation, I almost immediately noted that, that nonlocking screw was not stable as it pulled out of bone. I re-reduced the wrist and placed a locking screw distally. I next filled up the plate with 4 locking screws proximally and 4 distally. The plate was noted to be underneath the ECRB. The ECRL tendon was noted to be radial to the plate distally and deep to it proximally. Irrigation of all wounds. Closure of all wounds with buried simple stitches using Vicryl 3-0 suture in the subcutaneous layer and then skin incisions closed with a running stitches using nylon 4.0 suture. Prior to these layers of closure, I closed the extensor retinaculum using a figure- of-eight stitches using Vicryl 0 suture, leaving the EPL tendon subcutaneous. Local anesthesia injected. Xeroform, 4x4s, sterile Webril, non-sterile Webril, volar splint. Overwrapped with Ranjith bandage. The patient was awakened and extubated and transferred to the PACU. The patient received a second dose of IV antibiotics. DISPOSITION: The patient was initially scheduled to be discharged home. However, given her level of pain and her debilitation given injuries to all 4 limbs and surgery on the upper 2 limbs, the patient opted to stay in the hospital and was admitted for observation for pain control and occupational therapy. The patient while in house was to receive Ancef 1 g IV q.8 hours for up to 24 hours until she left. She was to receive occupational therapy. She was to be started on Lovenox 40 mg subcu once daily starting on postoperative day 1. She was to remain in her volar wrist splints. The patient was to see me the following week in clinic for wound check and a conversion to cast bilateral upper extremities. Since the patient was admitted, I decided to order an MRI scan of the right knee, which the patient was planning on having done as an outpatient anyway to assess that pain generator. The patient and her were told preoperatively that if I placed a dorsal spanning plate, that she would not be able to move her left wrist joint until that plate was removed between 3 to 4 months postoperatively. [id number]/[facility] #: [id number] MTDD
[2018-08-30] MEDS: Morphine TAB Extended Release (*) 30 MG TAB.ER PO SCH (07:33)
[2018-08-30] MEDS: NS 0.9% 1000 ML** 1,000 ML IV SCH (08:04)
[2018-08-30 11:26] VITALS: BP 119/57
[2018-08-30] MEDS: Enoxaparin(*) 40 MG/0.4 ML SYR SUBCUT SCH (11:53)
--- NOTE | 2018-08-30 12:14 | PN ---
Progress Note - Progress Note Date of Service: 08/30/18 SOAP: Subjective: []Patient seen at bedside, she is feeling much better in terms of pain and swelling between having the splints loosened yesterday and using Torodol. She feels ready for discharge and will be going to handicapped accessible hotel with no stairs initially. Objective: [] Vital Signs Temp 98 F 08/30/18 11:24 Pulse 62 08/30/18 11:24 Resp 16 08/30/18 11:53 BP 119/57 08/30/18 11:24 Pulse Ox 100 08/30/18 11:24 Intake & Output 08/29/18 08/30/18 08/30/18 18:59 06:59 18:59 Intake Total 1218 1280 1281 Output Total 1200 0 Balance 18 1280 1281 Intake: IV Fluids 1281 IVPB 1008 ABX - CEFAZOLIN 55 NS 953 Oral 210 1280 Output: Urine 1200 0 Other: Estimated Void Large # Bowel Movements 0 # Voids 1 Bilateral hand with ecchymosis and finger swelling that is much improved from yesterday afternoon, her sensation is grossly intact in all digits bilaterally. Wiggles fingers Knee immobilizer on LLE calves non tender and soft sensation and circulation intact bilateral lower extremities Assessment: []s/p ORIF bilateral wrist fractures non displaced left patella fracture bone bruise right knee Plan: []Discharge home/ hotel today follow up with Dr. Lopze next week Lovenox 40 2 weeks Medrol dose pack rx
--- NOTE | 2018-08-30 14:10 | DS ---
AMENDED REPORT NOW INCLUDES DESIGNATED COSIGNER DISCHARGE SUMMARY: DATE OF ADMISSION: 08/28/18 DATE OF DISCHARGE: 08/30/18 ATTENDING PHYSICIAN: Dr. Yair Lopez.* (DICTATED BY EUGENE QUISPE) ADMISSION DIAGNOSES: 1. Left knee nondisplaced mildly comminuted patella fracture. 2. Comminuted volar displaced distal radius fracture, right upper extremity; distal ulna fracture; left distal radius fracture; ulnar styloid fracture. 3. Right knee pain. DISCHARGE DIAGNOSES: 1. Left knee nondisplaced mildly comminuted patella fracture. 2. Comminuted volar displaced distal radius fracture, right upper extremity; distal ulna fracture; left distal radius fracture; ulnar styloid fracture. 3. Right knee pain. 4. Contusion, right knee. SURGERY PERFORMED: Open reduction and internal fixation, right distal radius fracture with volar locking plate, cancellous allograft bone chips; closed treatment of right distal ulnar neck fracture; open reduction and internal fixation, left distal radius fracture with bone grafting and dorsal spanning plate. 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 She fell on 08/15/18, falling forward, landing on her knees and her hands. She sustained the aforementioned injuries and it was felt she would benefit from surgical fixation for unstable wrist fractures. She elected to proceed and was taken to the operating room under the care of Dr. Yair Lopez on the date of 08/28/18 for the aforementioned upper extremity procedures. She tolerated the procedures and left the operating room in stable condition. She has been treated nonoperatively in a knee immobilizer for the left patella fracture. She was having right knee pain and underwent an MRI, which showed bone contusion , but no obvious fractures or ligamentous injury. Due to pain and swelling, she did not go home postoperative day #1. Her splints were loosened on 08/29/18 , which gave her relief. Also, Toradol was helpful with her swelling and pain. She felt much improved by postoperative day #2 and was found to be stable for discharge from the hospital. [facility], which does not require ambulating on stairs. She is stable medically and orthopedically for discharge today 08/30/18. CONDITION ON DISCHARGE: She is afebrile. Her vital signs are stable. She does have swelling and ecchymosis in the fingers of both upper extremities, but much improved from postoperative day #1. She has full sensation in all digits. She is able to wiggle the fingers slightly. She is neurovascularly intact in both lower extremities with knee immobilizer on the left extremity for ambulation. PLAN: She will be nonweightbearing on the upper extremities. She will continue to elevate above her heart. She may bear weight as tolerated in the knee immobilizer on the left and bear weight as tolerated on the right lower extremity as well. She is provided with a Medrol Dosepak for swelling and pain as well as oxycodone 10 mg. She will use Lovenox 40 mg subcu daily for 2 weeks postoperatively. She will follow up next week in the office with Dr. Lopez for repeat x-rays and changing of the splints of both the right and left wrists. All questions were answered and she is stable for discharge today. EUGENE QUISPE [id number]/[facility] #: [id number] YUE
== END 2018-08-30 16:20 | disposition home or self-care (01) ==
LOC: OR 08:02 → SSU 19:55
PROVIDERS: ADMIT Orthopaedic Surgery; ATTEND Orthopaedic Surgery
DX: S82.045A Nondisplaced comminuted fracture of left patella, initial encounter for closed fracture (principal); S52.501A Unspecified fracture of the lower end of right radius, initial encounter for closed fracture; S52.601A Unspecified fracture of lower end of right ulna, initial encounter for closed fracture; S52.502A Unspecified fracture of the lower end of left radius, initial encounter for closed fracture; S52.612A Displaced fracture of left ulna styloid process, initial encounter for closed fracture; W19.XXXA Unspecified fall, initial encounter; Y92.9 Unspecified place or not applicable; N20.0 Calculus of kidney
CPT/HCPCS: 76000; 96365; 96372; 96375; 96376; A9270-GY; C1713; C1776; G0378; J0690; J1100; J1170; J1240; J1650; J1885; J2250; J2270; J2405; J2704; J3010

== ENCOUNTER 2018-11-22 13:06 | Day surgery (SDC) | payer BC ==
[~2018-11-22 13:06] MED LIST changes: +Famotidine IV* 10 MG/ML 2 ML (20 mg) IV ONE; -Famotidine TAB* 20 MG PO ONE
[2018-11-22] MEDS ORDERED: Dexamethasone IV* 4 MG/ML 1 ML (4 MG) ONE (14:04)
[2018-11-22] MEDS ORDERED: ceFAZolin 2 GM PREMIX in ORs 2 GM/50 ML BAG ONE (14:04)
[2018-11-22] MEDS ORDERED: Famotidine IV* 10 MG/ML 2 ML (20 mg) ONE (14:05)
[2018-11-22] MEDS ORDERED: HYDROcodone/ACETAMIN 5-325 MG* 1 TAB PO PRN (14:54)
[2018-11-22] MEDS ORDERED: fentaNYL* 50 MCG/ML 2 ML VIAL (100 MCG VIAL) IV PRN (14:54)
[2018-11-22] MEDS ORDERED: Naloxone* 0.4 MG/ML 1 ML VIAL IV PRN (14:54)
[2018-11-22] MEDS ORDERED: DiMENhydriNATE IV* 50 MG/ML VIAL IV PUSH PRN (14:54)
[2018-11-22] MEDS ORDERED: Ketorolac INJ* 30 MG/ML 1 ML VIAL IV PRN (14:54)
[2018-11-22] MEDS ORDERED: Bupivacaine 0.5% W/EPI SDV* 10 ML VIAL INJ ONE ×2 (14:58→16:25)
[2018-11-22] MEDS ORDERED: Propofol* 10 MG/ML 20 ML BTL ONE (15:16)
[2018-11-22] MEDS ORDERED: Midazolam* 1 MG/ML 5 ML VIAL (5 MG) ONE (15:16)
[2018-11-22] MEDS ORDERED: KETAMINE HCL* 50 MG/ML 10 ML VIAL ONE (15:16)
[2018-11-22] MEDS ORDERED: fentaNYL* 50 MCG/ML 2 ML VIAL (100 MCG VIAL) ONE (15:16)
[2018-11-22] MEDS ORDERED: Lidocaine 2% PF * 5 ML VIAL ONE (15:17)
[2018-11-22] MEDS ORDERED: Ondansetron INJ* 2 MG/ML VIAL ONE (15:27)
[2018-11-22] MEDS ORDERED: Succinylcholine* 20 MG/ML 10 ML VIAL ONE (15:28)
[2018-11-22] MEDS ORDERED: oxyCODONE/Acetamin 5/325 MG* TAB ONE (17:29)
[2018-11-22] MEDS: oxyCODONE/Acetamin 5/325 MG* TAB PO PRN ×2 (17:30→17:52)
[2018-11-22 17:54] VITALS: BP 153/104
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
--- NOTE | 2018-11-26 16:32 | PN ---
Progress Note - Progress Note Date of Service: 11/26/18 - Anesthesia Note Note: Asked to speak with patient complaining of myalgias starting 1 day post op after receiving succinylcholine. patient became nauseated and was retching immediately after receiving midazolam for anxiolysis. Since general anesthesia was choosen i felt the need to place an ETT and succ was used. patient states her symptoms are improving and reassured her they will continue to do so but call with any other concerns. All questions answered. Dr. Staples
== END 2018-11-22 17:56 | disposition home or self-care (01) ==
LOC: OR 13:06
PROVIDERS: ATTEND Orthopaedic Surgery
DX: Z47.2 Encounter for removal of internal fixation device (principal); S52.502D Unspecified fracture of the lower end of left radius, subsequent encounter for closed fracture with routine healing; X58.XXXD Exposure to other specified factors, subsequent encounter; Y92.9 Unspecified place or not applicable; E83.119 Hemochromatosis, unspecified; Z85.3 Personal history of malignant neoplasm of breast
CPT/HCPCS: 88300; A9270-GY; J0330; J0690; J1100; J2250; J2405; J2704; J3010

== ENCOUNTER → 2019-01-17 07:03 | Day surgery (SDC) | payer BC, OTHER ==
[~2019-01-17 07:03] MED LIST changes: +Acetaminophen TAB* 325 MG PO PRN; -Dexamethasone IV* 4 MG/ML 1 ML (4 MG) IV SLOW PU ONE; +Dexamethasone IV* 4 MG/ML 1 ML (4 MG) ONE; +DiMENhydriNATE IV* 50 MG/ML VIAL IV PUSH PRN; +DiMENhydriNATE IV* 50 MG/ML VIAL ONE; +Famotidine IV* 10 MG/ML 2 ML (20 mg) ONE; +Ketorolac INJ* 30 MG/ML 1 ML VIAL ONE; +Lidocaine 2% PF * 5 ML VIAL ONE; +Midazolam* 1 MG/ML 5 ML VIAL (5 MG) ONE; +Naloxone* 0.4 MG/ML 1 ML VIAL IV PRN; +Ondansetron INJ* 2 MG/ML VIAL ONE; +Propofol* 10 MG/ML 20 ML BTL ONE; +fentaNYL* 50 MCG/ML 2 ML VIAL (100 MCG VIAL) ONE; +oxyCODONE TAB* 5 MG TAB PO PRN
--- NOTE | 2019-01-17 11:07 | OP ---
CC: [facility] OPERATIVE REPORT: DATE OF OPERATION: 01/17/19 DATE OF : 51 SURGEON: John Vickers MD ANESTHESIOLOGIST: Dr. Young. ANESTHESIA: General endotracheal anesthesia. PRE-OP DIAGNOSES: Thickened endometrium on ultrasound and endocervical polyp on office biopsy. When we were in the operating room it was noticed that the patient had a 1.2 to 1.5 cm raised oval shaped brown lesion in the midline on her vulva. POST-OP DIAGNOSES: Thickened endometrium on ultrasound and endocervical polyp on office biopsy. When we were in the operating room it was noticed that the patient had a 1.2 to 1.5 cm raised oval shaped brown lesion in the midline on her vulva. OPERATIVE PROCEDURE: Dilation hysteroscopy, MyoSure polypectomy, curettage, and excision of vulvar lesion. ESTIMATED BLOOD LOSS: Minimal, 50 cc. MYOSURE DEFICIT: 125 cc. FINDINGS: Small midline uterus, no adnexal masses were palpated. There was a polyp near the patient's left tubal ostia with a broad base, otherwise the endometrium appeared atrophic. Both tubal ostia were visualized. No endocervical polyps were seen with the hysteroscope. There was a 1.2 to 1.5 cm raised, multicolored, oval shaped (wider than tall) brown lesion in the midline on the vulva, approximately 2 cm above the symphysis pubis. COMPLICATIONS: None. COUNTS: Sponge, lap, and needle counts were correct x2. The patient was brought to recovery room awakened in stable condition. DESCRIPTION OF PROCEDURE: The patient was brought to the operating room when general anesthesia was found to be adequate. The patient was prepped and draped in the usual sterile fashion in the dorsal lithotomy position. Extreme care was taken with the patient's arms and legs due to her recent orthopedic surgeries. A vulvar lesion was noted during the prep. The patient's was called and he gave verbal consent for excision of the vulvar lesion after I spoke to him from the operating room on the phone. Time-out was performed, weighted speculum was placed in the vagina. The anterior lip of the cervix was grasped with a single-tooth tenaculum and the cervix was gently and easily dilated with a graduated Edith dilators. The MyoSure was introduced. A polyp was noted by the left tubal ostia. The polyp was removed in its entirety with a MyoSure Lite. Curettage was then performed and the polyp and endometrial curettings were sent to pathology as one specimen. Attention was then turned to the vulvar lesion, this was excised in toto using the scalpel and 3 interrupted sutures of 4-0 Vicryl were placed to approximate the skin and achieve hemostasis. The patient tolerated the procedure well. Sponge, lap, and needle counts were correct x2 and the patient was brought to recovery room awake and in stable condition. [id number]/[facility] #: [id number] [facility] CENT[facility]aiser
[2019-01-17 11:58] VITALS: BP 132/74
== END | disposition home or self-care (01) ==
LOC: OR 07:03
PROVIDERS: ATTEND Obstetrics & Gynecology
DX: N84.0 Polyp of corpus uteri (principal); N90.89 Other specified noninflammatory disorders of vulva and perineum; Z87.891 Personal history of nicotine dependence; E83.119 Hemochromatosis, unspecified; M19.90 Unspecified osteoarthritis, unspecified site; Z87.442 Personal history of urinary calculi; Z85.3 Personal history of malignant neoplasm of breast; G89.21 Chronic pain due to trauma
CPT/HCPCS: 88305; J1100; J1240; J1885; J2250; J2405; J2704; J3010

== ENCOUNTER 2019-04-20 22:58 | Emergency (ER) | payer BC ==
[2019-04-20] MEDS ORDERED: NS 0.9% 1000 ML** 1,000 ML IV ONE (23:05)
[2019-04-20] MEDS ORDERED: Morphine 10 MG/ML VIAL (1 ml) IV ONE (23:05)
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
[2019-04-21] MEDS ORDERED: oxyCODONE TAB* 5 MG TAB PO ONE (00:54)
[2019-04-21 01:11] VITALS: BP 127/56
== END 2019-04-21 01:09 | disposition home or self-care (01) ==
LOC: ED 22:58
DX: S52.202A Unspecified fracture of shaft of left ulna, initial encounter for closed fracture (principal); S52.92XA Unspecified fracture of left forearm, initial encounter for closed fracture; E83.119 Hemochromatosis, unspecified; M81.0 Age-related osteoporosis without current pathological fracture; W01.0XXA Fall on same level from slipping, tripping and stumbling without subsequent striking against object, initial encounter; Y92.9 Unspecified place or not applicable; Z87.891 Personal history of nicotine dependence; Z87.442 Personal history of urinary calculi; Z85.3 Personal history of malignant neoplasm of breast
CPT/HCPCS: 96374; 99282; A9270-GY; J2270

== ENCOUNTER 2019-04-25 13:11 | Day surgery (SDC) | payer BC ==
[~2019-04-25 13:11] MED LIST changes: +Acetaminophen TAB* 325 MG PO ONE; -Acetaminophen TAB* 325 MG PO PRN; -Dexamethasone IV* 4 MG/ML 1 ML (4 MG) ONE; -DiMENhydriNATE IV* 50 MG/ML VIAL IV PUSH PRN; -DiMENhydriNATE IV* 50 MG/ML VIAL ONE; -Famotidine IV* 10 MG/ML 2 ML (20 mg) IV ONE; -Famotidine IV* 10 MG/ML 2 ML (20 mg) ONE; -Ketorolac INJ* 30 MG/ML 1 ML VIAL ONE; -Lidocaine 2% PF * 5 ML VIAL ONE; -Midazolam* 1 MG/ML 5 ML VIAL (5 MG) ONE; -Naloxone* 0.4 MG/ML 1 ML VIAL IV PRN; -Ondansetron INJ* 2 MG/ML VIAL ONE; -Propofol* 10 MG/ML 20 ML BTL ONE; -fentaNYL* 50 MCG/ML 2 ML VIAL (100 MCG VIAL) ONE; -oxyCODONE TAB* 5 MG TAB PO PRN
[2019-04-25] MEDS ORDERED: ceFAZolin 2 GM in NS PREMIX(*) 2 GM/100 ML BAG IVPB ONE (14:00)
[2019-04-25] MEDS ORDERED: Acetaminophen TAB* 325 MG ONE (14:00)
[2019-04-25] MEDS ORDERED: Midazolam* 1 MG/ML 2 ML VIAL (2 MG) ONE (16:01)
[2019-04-25] MEDS ORDERED: fentaNYL* 50 MCG/ML 5 ML VIAL (250 MCG VIAL) ONE (16:01)
[2019-04-25] MEDS ORDERED: diPHENhydraMINE IV* 50 MG/ML 1 ml VIAL (BENADRYL) IV PRN (16:02)
[2019-04-25] MEDS ORDERED: Morphine 4 MG/ML VIAL (1 ml) 4 MG/ML VIAL IV PRN (16:02)
[2019-04-25] MEDS ORDERED: PROCHLORPERAZINE INJ 5 MG/ML 2 ML VIAL IV PRN (16:02)
[2019-04-25] MEDS ORDERED: Naloxone* 0.4 MG/ML 1 ML VIAL IV PRN (16:02)
[2019-04-25] MEDS ORDERED: oxyCODONE TAB* 5 MG TAB PO PRN (16:02)
[2019-04-25] MEDS ORDERED: Propofol* 10 MG/ML 20 ML BTL ONE (16:07)
[2019-04-25] MEDS ORDERED: Lidocaine 2% PF * 5 ML VIAL ONE (16:08)
[2019-04-25] MEDS ORDERED: Bupivacaine 0.5% W/EPI SDV* 10 ML VIAL INJ ONE (16:31)
[2019-04-25] MEDS ORDERED: Rocuronium* 10 MG/ML VIAL ONE (16:34)
[2019-04-25] MEDS ORDERED: Morphine 10 MG/ML VIAL (1 ml) ONE (16:50)
[2019-04-25] MEDS ORDERED: KETAMINE HCL* 50 MG/ML 10 ML VIAL ONE (16:53)
[2019-04-25] MEDS ORDERED: Dexamethasone IV* 4 MG/ML 1 ML (4 MG) ONE (16:56)
[2019-04-25] MEDS ORDERED: Morphine TAB Extended Release (*) 15 MG TAB.ER PO SCH (17:00)
[2019-04-25] MEDS ORDERED: Ondansetron INJ* 2 MG/ML VIAL ONE (18:35)
[2019-04-25] MEDS ORDERED: Glycopyrrolate IV* 0.2 MG/ML 1 ML VIAL ONE (18:35)
[2019-04-25] MEDS ORDERED: Neostigmine Methylsulfate* 3 MG/3 ML SYRINGE ONE (18:35)
[2019-04-25] MEDS ORDERED: fentaNYL* 50 MCG/ML 2 ML VIAL (100 MCG VIAL) ONE (19:18)
[2019-04-25] MEDS: fentaNYL* 50 MCG/ML 2 ML VIAL (100 MCG VIAL) IV PRN ×2 (19:19→19:38)
[2019-04-25] MEDS ORDERED: oxyCODONE TAB* 5 MG TAB ONE (19:39)
[2019-04-25 21:20] VITALS: BP 160/82
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
== END 2019-04-25 21:47 | disposition home or self-care (01) ==
LOC: OR 13:11
PROVIDERS: ATTEND Orthopaedic Surgery
DX: S52.502A Unspecified fracture of the lower end of left radius, initial encounter for closed fracture (principal); S52.602A Unspecified fracture of lower end of left ulna, initial encounter for closed fracture; M81.0 Age-related osteoporosis without current pathological fracture; W19.XXXA Unspecified fall, initial encounter; Y92.9 Unspecified place or not applicable
CPT/HCPCS: 76000; A9270-GY; C1713; C1776; J0690; J1100; J2250; J2270; J2405; J2704; J2710; J3010